=== PATIENT | female | born 1955 | race Caucasian/White ===

== ENCOUNTER 2020-09-06 12:36 | Emergency (ER) | payer MEDICARE, SELFPAY ==
[2020-09-06 12:40] VITALS: BP 136/70; PULSE 86; RESP 16; TEMP 36.6; O2SAT 97
--- NOTE | 2020-09-06 12:56 | ED.EYEPROB ---
HPI - Eye Problem General Chief complaint: Eye Problems Stated complaint: something in right eye Time Seen by Provider: 09/06/20 12:37 Source: patient Mode of arrival: ambulatory Limitations: no limitations History of Present Illness HPI Narrative: 65-year-old near-sighted woman with a history cataract surgery in her right eye comes in today complaining of a spider web-like visual defect in her right eye. she states that started at noon today. She denies any foreign body sensation or she had any eye trauma. She had cataract surgery in the last year two. She has a history of hypertension but denies history of diabetes. She denies prior similar symptoms. She denies blurred vision, flashing lights, double vision, eye pain, headache, nausea, vomiting or photophobia. MD chief complaint: vision change Onset (ago): hour(s) (1) Onset description: sudden Duration: constant Location: right eye Place: home Mechanism: none Severity: mild Treatments Prior to Arrival: none Related Data Home Medications Medication Instructions Recorded Confirmed amlodipine 10 mg PO DAILY 09/06/20 09/06/20 atorvastatin 20 mg PO HS 09/06/20 09/06/20 bupropion HCl 100 mg PO BID 09/06/20 09/06/20 levothyroxine 112 mcg PO DAILY 09/06/20 09/06/20 lisinopril-hydrochlorothiazide 1 tablet PO DAILY 09/06/20 09/06/20 Allergies Allergy/AdvReac Type Severity Reaction Status Date / Time No Known Allergies Allergy Unverified 11/14/18 16:13 Review of Systems Constitutional: Constitutional: Denies chills, Denies fever(s) and Denies weakness Eyes: Eyes: Reports as per HPI, Reports change in vision and Denies photophobia ENT: Denies dysphagia, Denies nasal congestion and Denies sore throat Cardiovascular: Cardiovascular: Denies chest pain and Denies radiating jaw, neck or arm pain Respiratory: Respiratory: Denies cough, Denies dyspnea and Denies wheezing Gastrointestinal: Gastrointestinal: Denies abdominal pain, Denies nausea and Denies vomiting Musculoskeletal: Musculoskeletal: Denies back pain, Denies arthralgias and Denies joint swelling Integumentary/Breasts: Skin/Breast: Denies pruritus, Denies erythema and Denies rash Neurologic: Denies vertigo, Denies dizziness and Denies syncope Hematologic/Lymphatic: Hematologic/Lymphatic: Denies easy bleeding and Denies easy bruising Allergic/Immunologic: Allergic/Immunologic: Denies lip swelling and Denies throat swelling [facility] Past Medical History Medical History (Updated 09/06/20 @ 15:06 by Darin Baker MD) Dyslipidemia Hypertension Hypothyroidism Mood disorder Surgical History Surgical History (Updated 09/06/20 @ 15:06 by Darin Baker MD) History of appendectomy History of tubal ligation Social History Social History (Updated 09/06/20 @ 15:07 by Darin Baker MD) Smoking status: Current every day smoker Alcohol intake: never Substance use: never Living arrangements: with family Occupation/Education: retired Exam Const: General: healthy appearing, no acute distress and alert Orientation/consciousness: patient oriented x3 Limitations: no limitations HENMT: Head: normal to inspection Ears: external ears normal, TM's normal bilaterally and EAC's normal General nose exam: Normal nares present Face and sinus: normal facial exam Mouth: Yes moist mucous membranes Throat: posterior oropharynx normal Eyes: Conjunctivae: conjunctivae normal and normal conjunctivae Pupils: Equal, round and reactive pupils present EOM: EOMs intact bilaterally Direct Ophthalmoscopy: no photophobia Other: Anterior chamber is without lesion, notable hyphema or cloudiness. Cornea shows no foreign body and no uptake. Neck: Neck: normal visual inspection and no lymphadenopathy Resp: Effort & Inspection: normal respiratory effort and not labored Auscultation: clear to auscultation bilaterally, no rales, no rhonchi and no wheezes Cardio: Rate: regular rate Rhythm: reg
[2020-09-06] MEDS: FLUORESCEIN SOD 1 MG/STRIP RIGHT EYE (13:03)
[2020-09-06] MEDS: DACRIOSE EYE IRRIGATION 118 ML BOTTLE 20 ML RIGHT EYE (13:03)
[2020-09-06] MEDS: TETRACAINE HCL 0.5% OPHTH SOLN 4 ML BTL 1 DROP RIGHT EYE (13:03)
--- NOTE | 2020-09-06 13:23 | PC.NURSE ---
[facility] CONTACTED BY [facility] DR. COLEY
--- NOTE | 2020-09-06 14:31 | PC.NURSE ---
Dyllan contacted, erp spoke with on-call opthamologist
[2020-09-06 14:37] VITALS: RESP 14; O2SAT 100
== END 2020-09-06 14:38 | disposition home or self-care (01) ==
PROVIDERS: Emergency Provider Emergency Medicine; PCP Family Medicine
DX: H54.7 Unspecified visual loss (principal)
CPT/HCPCS: 99282; 99283; A9270

== ENCOUNTER 2021-05-20 07:56 | Outpatient (CLI) | payer MEDICARE, SELFPAY ==
--- NOTE | ~2021-05-20 | XR_ITS ---
XR hip RT 2V w AP pelvis DATE: 05/20/2021 08:17 INDICATION: Generalized right hip pain, limited range of motion. No injury. TECHNIQUE: AP pelvis. AP and lateral views of right hip. COMPARISON: None FINDINGS: There is diffuse osteopenia. There is moderate degenerative disc disease of the lumbar spine. Status post left total hip arthroplasty. The pubic symphysis and sacroiliac joints are intact. No pelvic fracture or bone destruction is detec paulette. There is severe right hip joint space narrowing and spurring compatible with severe right hip osteoar thritis. Abdominal aortic, iliac and femoral arterial calcifications. IMPRESSION: Severe primary right hip osteoarthritis Status post left total hip arthroplasty Osteopenia Reviewed, dictated and finalized at location A. H COOK
== END 2021-05-20 07:57 | disposition home or self-care (01) ==
LOC: CHSIMG 08:00
PROVIDERS: PCP Family Medicine; Visit Provider Orthopaedic Surgery
DX: M25.551 Pain in right hip (principal)
CPT/HCPCS: 73502

== ENCOUNTER 2021-06-30 12:42 | Outpatient (CLI) | payer MEDICARE, SELFPAY ==
--- NOTE | ~2021-06-30 | MM_ITS ---
EXAMINATION: MM screening kennedi BI w janelle HISTORY: Screening TECHNIQUE: Craniocaudal and mediolateral oblique 3-D tomosynthesis images were obtained and synthetic 2-D images were generated. CAD analysis was submitted and interpreted. COMPARISON: No prior mammogram is available for comparison at this institution. 06/11/2016 BREAST PARENCHYMAL COMPOSITION: There are scattered areas of fibroglandular density. FINDINGS: There is no evidence of suspicious mass, calcification, or architectural distortion to sugg est malignancy in either breast. There has been no suspicious interval change. IMPRESSION: 1. No mammographic evidence of malignancy. 2. Recommend routine screening mammography in one year. BI-RADS Category 1: Negative Reviewed, dictated and finalized at location A. GER PROCESS
--- NOTE | ~2021-06-30 | CT_ITS ---
EXAMINATION: CT lung screening DATE: 06/30/2021 13:08 INDICATION: Personal history of nicotine dependence, prior smoker with 80 pack year history TECHNIQUE: Computed tomography (CT) of the chest was performed without intravenous contrast. The dose -length product (DLP) was 230.01 mGy-cm. Automated exposure control and iterative reconstruction tech [employer] were employed. COMPARISON: 07/12/2018 FINDINGS: No suspicious pulmonary nodules are identified. The lungs are free of acute opacities. Ther e is no pleural effusion or pneumothorax. No pathologically enlarged thoracic lymph nodes are identif ied. The heart size is normal. There is lipomatous hypertrophy of the interatrial septum. Calcified c oronary artery atherosclerosis is noted. There is mild thoracic spondylosis. IMPRESSION: 1. Lung-RADS category 1: Negative. Continue annual screening with noncontrast low-dose chest CT in 12 months. Reviewed, dictated and finalized at location A. AGE DESIGNER IMPRESSION: 1. Lung-RADS category 1: Negative. Continue annual screening with noncontrast l ow-dose chest CT in 12 months.
== END 2021-06-30 12:43 | disposition home or self-care (01) ==
LOC: CHSIMG 12:43
PROVIDERS: PCP Family Medicine; Visit Provider Family Medicine
DX: Z87.891 Personal history of nicotine dependence (principal); J44.9 Chronic obstructive pulmonary disease, unspecified; Z12.31 Encounter for screening mammogram for malignant neoplasm of breast
CPT/HCPCS: 71271; 77063; 77067

== ENCOUNTER 2021-07-25 07:33 | Outpatient (CLI) | payer MEDICARE, SELFPAY ==
--- NOTE | 2021-07-25 08:39 | ECG_ITS ---
Measurements Intervals [place] Rate: 66 P: 43 W[place]: 153 QRS: 52 QRSD: 98 T: 81 QT: 386 QTc: 407 Interpretive Statements SINUS RHYTHM WITH OCCASIONAL VENTRICULAR PREMATURE COMPLEXES NONSPECIFIC T-WAVE ABNORMALITY, CONSIDER ANTERIOR ISCHEMIA [-0.1+ mV T WAVE IN V3/V4] BORDERLINE ECG COMPARED TO ECG 11/04/2018 10:13:17 NO SIGNIFICANT CHANGES Electronically Signed On 07-25-2021 15:09:52 TICKETING AGENT by Praveen Knight M.D.
[2021-07-25 09:54] LABS: Basophils Absolute Auto 0.1 K/mm3 (0.0-0.1); Basophils Percent Auto 1.2 % (0.2-1.2); Eosinophils Absolute Auto 0.2 K/mm3 (0-0.3); Eosinophils Percent Auto 2.4 % (0-4.4); Immature Granulocyte Absolute 0.02 K/mm3 (0.00-0.031); Immature Granulocyte Percent A 0.3 % (0-0.5); Lymphocytes Absolute Auto 1.81 K/mm3 (0.9-3.2); Lymphocytes Percent Auto 27.4 % (18.3-44.2); Mean Corpuscular HGB Conc 32.5 g/dl (32-36); Mean Corpuscular Hemoglobin 31.2 pg (26-34); Mean Corpuscular Volume 95.9 fl (80-100); Mean Platelet Volume 8.6 fl (7.4-10.4); Monocytes Absolute Auto 0.7 K/mm3 (0.1-0.6); Neutrophils Absolute Auto 3.9 K/mm3 (1.3-6.7); Neutrophils Percent Auto 58.7 % (45.5-73.1); Platelet Count Result 320 k/mm3 (150-375); Red Blood Count 4.17 M/mm3 (4.2-5.4); White Blood Count 6.6 K/mm3 (4.5-10.0)
[2021-07-25 10:02] LABS: Urine Cotinine NEGATIVE
[2021-07-25 10:04] LABS: Prothrombin Time 12.4 Seconds (11.1-14.7)
[2021-07-25 10:05] LABS: Partial Thromboplastin Time 27.2 SECONDS (22.3-36.8)
[2021-07-25 10:07] LABS: Albumin Level 4.5 g/dL (3.5-5.1); Anion Gap 5 mmol/L (8-16); Blood Urea Nitrogen 15 mg/dL (7-17); Calcium 9.2 mg/dL (8.4-10.2); Carbon Dioxide 31 mmol/L (22-30); Chloride 102 mmol/L (98-107); Estimated Glomerular Filt Rate 50; Glucose 90 mg/dL (65-110); Potassium 4.1 mmol/L (3.4-5.0); Sodium 138 mmol/L (137-145)
[2021-07-25 10:12] LABS: Add Urine Microscopic? NO; Appearance Urine Clear (Clear); Bilirubin Urine Negative (Negative); Blood Urine Negative (Negative); Color Urine Straw (Yellow); Glucose Urine UA Negative (Negative); Ketones Urine Negative (Negative); Leukocyte Esterase Ur Negative LEU/UL (Negative); Nitrate Urine Negative (Negative); Protein Urine Negative (Negative); Specific Grav Ur 1.006 (1.001-1.035); Urobilinogen Urine Negative mg/dL (<2.0)
[2021-07-25 12:58] LABS: Hemoglobin A1C 5.5 % (<5.7)
== END 2021-07-25 07:34 | disposition home or self-care (01) ==
LOC: ANHSURGERY 07:41
PROVIDERS: PCP Family Medicine; Visit Provider Orthopaedic Surgery
DX: Z01.818 Encounter for other preprocedural examination (principal); M16.11 Unilateral primary osteoarthritis, right hip
CPT/HCPCS: 80048; 80307; 81003; 82040; 83036; 85025; 85610; 85730; 86850; 86900; 86901; 87081; 93005

== ENCOUNTER 2021-07-31 11:59 | Observation (INO) | payer MEDICARE, SELFPAY ==
[2021-07-25 07:52] VITALS: BMI 32.6
--- NOTE | 2021-07-25 08:19 | PC.NURSE ---
Report to the Outpatient Waiting Room, entrance under the green pavilion located off [facility], at time _0900 on date 07/30/21 . OR Time: _1100 . - You and your visitor will be asked a series of questions to screen for COVID 19 for your protection. - A mask is required within the hospital. Preoperative COVID Testing Requirements: No COVID Test needed if: (proof is required; if not received patient will have Rapid Test prior to entry) - Patient has received COVID Vaccine at least 14 days prior to procedure date or - Patient has positive COVID test result within last 90 days of surgery date. COVID Test needed if above criteria is not met If not COVID vaccinated a COVID test must be conducted within 72 hours of surgery and patient is asked to isolate self from time of testing until procedure. You will go to the [facility] for your COVID testing. The [facility] is located at the corner of [address] [facility]. You will only be called if COVID results are positive and your surgeon may reschedule your elective surgery date. Patients may have clear liquids (water, carbonated beverages, clear teas, apple juice) until 3 hours prior to surgery with a maximum of 20 ounces. - No food from midnight until time of surgery Take the following medications with a SIP of water the morning of surgery: ___INHALER,AMLODIPINE,BUPROPION,AND LEVOTHYROXINE Medications to discontinue per physician ___PROBIOTIC 3 DAYS PRE OP Date to take last dose___07/26/21 Please no make-up, nail lithuanian, hairspray, perfume, deodorant, or body powder the day of surgery. No jewelry (including any body piercings) or valuables the day of surgery, leave them at home. Please take a shower or bath the night before, or the morning of, surgery with an antibacterial soap. Wear comfortable, loose fitting clothing. Children are encouraged to wear pajamas. - Jewelry must be removed prior to entering the operating room. Rings and piercings that are not removed may be cut off. - The hospital will not accept responsibility for valuables. - Please leave all valuables, including medications, at home the day of surgery. If you are going home after surgery, a licensed recycler forklift driver truck driver must drive you home. - NO public transportation without another adult. - We recommend that an adult stay with you for 24 hours following discharge. - We also recommend that you do not drive, make important decision, drink alcoholic beverages, or take any drugs that were not prescribed by your health care provider for at least 24 hours after your discharge time. One visitor will be allowed to accompany the patient into the hospital. Patients visitor will be instructed to remain with patient at all times or leave the building. We will allow the visitor to come back to the postoperative area when patient is ready. Follow any additional instructions given to you from your surgeon. VERBAL AND WRITTEN instructions given to PATIENT and asked if any additional questions and then verbalized understanding. Patient advised to call surgeon office or pre surgery nurse liaison [phone] if any additional questions.
[2021-07-25 08:39] VITALS: BP 143/59; PULSE 69; RESP 20; TEMP 36.4; O2SAT 99
--- NOTE | 2021-07-29 14:47 | WPDANESEPPF ---
Anes - Initial Pre Proc Eval Procedure: Operation Date: 07/30/21 07:30 Proposed Procedures p Right Total Hip Arthroplasty - Erwin Nicholson MD Date/Time: 07/29/21 14:47 Surgeon: Erwin Nicholson MD Pre Op Diagnosis: Rt Hip DJD Patient Data Age: 66 Gender: F Height: 1.65 m Weight: 89.1 kg Last Vital Signs Temp 97.5 F L 07/25/21 08:39 Pulse 69 07/25/21 08:39 Resp 20 07/25/21 08:39 BP 143/59 H 07/25/21 08:39 Pulse Ox 99 07/25/21 08:39 Allergies Allergy/AdvReac Type Severity Reaction Status Date / Time No Known Allergies Allergy Verified 07/30/21 06:13 Home Medications Medication Instructions Recorded Confirmed Type amlodipine 10 mg PO DAILY 09/06/20 07/30/21 History atorvastatin 20 mg PO HS 09/06/20 07/30/21 History lisinopril-hydrochlorothiazide 1 tablet PO DAILY 09/06/20 07/30/21 History L. gasseri-B. bifidum-B longum 1 cap PO DAILY 07/25/21 07/30/21 History [[employer]] albuterol sulfate [Ventolin HFA] 1 puff INHALATION BID 07/25/21 07/30/21 History bupropion HCl 300 mg PO DAILY 07/25/21 07/30/21 History docusate sodium [Stool Softener] 50 mg PO DAILY 07/25/21 07/30/21 History levothyroxine 137 mcg PO DAILY 07/25/21 07/30/21 History Patient hx anesthesia problems: none Family hx anesthesia problems: none Results Review: All pre-operative results and documents have been reviewed as part of the pre-operative evaluation. [facility] Past Medical History Medical History (Updated 06/05/21 @ 15:33 by Chen Ziegler, RT(R)) Arthritis Constipation COPD (chronic obstructive pulmonary disease) Depression Dyslipidemia High cholesterol Hypertension Hypothyroidism Mood disorder Wears glasses Surgical History Surgical History (Updated 06/05/21 @ 15:33 by Chen Ziegler, RT(R)) History of appendectomy History of left hip replacement History of surgery on wrist History of tubal ligation Family History Family History (Updated 06/05/21 @ 15:34 by Chen Ziegler RT(R)) Other Asthma Heart disease High cholesterol Hypertension Social History Social History (Updated 06/05/21 @ 15:34 by RT Mo(R)) Smoking packs per day: 1.5 Smoking cigarettes per day: 30.0 Years smoked: 40 Smoking pack-years: 60.00 Tobacco type: cigarettes Smoking end date: 05/17/12 Additional smoking assessment comments: DENIES ANY FORM OF TOBACCO USE Alcohol intake: never Substance use: never Living arrangements: with family Gender identity (if verbalized by the patient): Female Spiritual care concerns: No Anes - Eval Final PreProcedure Day of Procedure 07/29/21 14:47 Patient weight: obese Heart: regular rate and rhythm Lungs: clear to auscultation Airway: Mallampati scale class II Neurological: alert and oriented Last oral intake: >/= 8 hours ASA classification: III Emergent: no Anesthetic plan: proceed Anesthesia type and monitoring: general ETT and standard monitoring Results Review: All pre-operative results and documents have been reviewed as part of the pre-operative evaluation. Informed Consent: The patient's anesthetic plan and its attendant risks and benefits were discussed with the patient/family/POA. Questions were solicited and answers provided to the satisfaction of the patient/family/POA.
[2021-07-30] VITALS (35 sets, daily range): BP systolic 76–125; BP diastolic 45–78; PULSE 56–96; RESP 7–18; TEMP 36.2–36.8; O2SAT 66–100
[2021-07-30] MEDS: ACETAMINOPHEN 500 MG TABLET 1000 MG PO (06:21)
[2021-07-30] MEDS: LACTATED RINGERS 1,000 ML 30 ML IV CONT ×2 (06:44→11:16)
[2021-07-30] MEDS: TRANEXAMIC ACID 1,000MG/ISO100 1,000 MG/100 ML BAG 200 MG IVPB (06:45)
--- NOTE | 2021-07-30 07:29 | WPDHPUPDATE1 ---
History and Physical Update Update Date/Time: 07/30/21 07:29 History and Physical has been reviewed, including an updated exam of the patient. There are NO changes in the patient's condition. Risks, benefits, and alternatives have been discussed and questions answered. Patient agrees to proceed with procedure.
[2021-07-30] MEDS: ceFAZolin 2 GM/D5W 50 ML 2 GM/50 ML BAG IVPB ×3 (07:33→23:08)
[2021-07-30] MEDS: TRANEXAMIC ACID 1,000 MG/10 ML AMPUL 1000 MG IV PUSH (10:09)
--- NOTE | 2021-07-30 11:35 | SUR.PHASEI ---
1120 PORTABLE XRAY OF RIGHT HIP DONE.
--- NOTE | 2021-07-30 12:14 | P.OP_ITS ---
Procedure Note - Detailed Date of Procedure 07/30/21 Pre-op Diagnosis Rt Hip DJD Post-op Diagnosis Same Procedure Performed R RACHAEL Surgeon Erwin Nicholson MD Anesthesia General Description of Procedure THE PATIENT WAS TAKEN TO THE OPERATING ROOM IN STABLE CONDITION AND WAS PLACED IN THE LATERAL DECUBITUS AND THE RIGHT LOWER EXTREMITY WAS PREPPED AND DRAPED IN THE STERILE FASHION. INCISION WAS MADE IN THE POSTERIOR LATERAL SIDE OF THE HIP, DOWN TO THE FASCIA LAYER. THE FASCIA WAS INCISED. THE HIP WAS EXPOSED. THE SHORT EXTERNAL ROTATORS WERE EXPOSED. THE SCIATIC NERVE WAS IDENTIFIED. INCISION WAS MADE THROUGH THE SHORT EXTERNAL ROTATORS AND THE CAPSULE OF THE HIP JOINT. THE HIP WAS DISLOCATED. AN OSTEOTOMY WAS MADE TO THE FEMORAL NECK ABOUT 1 CM PROXIMAL TO THE LESSER TROCHANTER. THE ACETABULUM WAS EXPOSED. THERE WAS SEVERE DJD SEEN. BEGINNING WITH A 44 REAMER THE ACETABULUM WAS REAMED TO 55 MM. A 55 MM TRIAL WAS PLACED IN 35 DEG OF ABDUCTION AND ANTEVERSION WAS IN ALIGNMENT WITH THE TRANS ACETABULAR LIGAMENT. THE FIT WAS EXCELLENT. THE TRIAL WAS REMOVED. A 56 MM BIOMET G7 COMPONENT WAS THEN TAPPED IN TO PLACE IN 35 DEG OF ABDUCTION AND ANTEVERSION IN ALIGNMENT WITH THE TRANSVERSE ACETABULAR LIGAMENT. THE FIT WAS EXCELLENT. THE ACETABULAR LINER WAS PLACED AND CHECKED FOR STABILITY. NEXT THE FEMUR WAS PREPARED WITH INITIAL CANAL FINDER THEN SEQUENTIAL BROACHING WITH A TAPERLOC HIP SYSTEM, UNTIL A 10 BROACH FIT WELL IN 15 OF ANTEVERSION. A +0 HIGH OFFSET NECK WITH 36 MM HEAD TRIAL WAS PLACED. THE SHUCK TEST WAS EXCELLENT AND THE STABILITY IN FLEXION AND ROTATION WAS EXCELLENT. LEG LENGTHS WERE GROSSLY EQUAL. TRIALS WERE REMOVED. A BIOMET TAPERLOC 10 STEM WAS PLACED WITH A HIGH OFFSET NECK THE FIT WAS EXCELLENT IN 15 DEG OF ANTEVERSION. A +0 CERAMIC 36 MM FEMORAL HEAD WAS PLACED. THE HIP WAS TRIALED AND THE STABILITY WAS EXCELLENT WERE THE LEG LENGTHS AND THE SHUCK TEST. THE WOUND WAS IRRIGATED WITH STERILE BETADINE AND WATER FOR 3 MIN. THEN WASHED AGAIN. THE CAPSULE AND THE EXTERNAL ROTATORS WERE APPROXIMATED WITH NUMBER 1 VICRYL. THE FASCIA WITH No 2 QUIL AND THE SUB CUTANEOUS LAYER WITH 2-0 ABSORBABLE SUTURE WITH A RUNNING 3-0 SUBCUTICULAR LAYER WELL. DERMABOND WAS PLACED AND STERILE DRESSING WAS APPLIED. PATIENT WAS PLACED BACK ON TO THE SUP INE POSITION AND WAS EXTUBATED Estimated Blood Loss -600.0 Complications No immediate complications Condition Stable Disposition PACU
[2021-07-30] MEDS: ONDANSETRON INJ 4 MG/2 ML VIAL IV PUSH (12:21)
--- NOTE | 2021-07-30 12:39 | SUR.PHASEI ---
DR. ERVIN NOTIFIED RE:PATIENT'S SYSTOLIC BP'S IN LOW 80'S. NO ORDERS FOR NOW.
--- NOTE | 2021-07-30 12:46 | SUR.PHASEI ---
SATS TO 66% ON RA WHEN SHE FALLS ASLEEP; RISE TO 90%'S WHEN SHE AWAKENS; 2 LITERS OXYGEN PER NC PLACED.
--- NOTE | 2021-07-30 13:06 | SUR.PHASEI ---
REPORT GIVEN TO 2N FLOOR RN; RN ASKED TO CHECK WITH CRUSHER AND BLENDER OPERATOR RE: BP'S IN LOW 80'S. ISRAEL NOTIFIED. INSTRUCTED TO CALL DR. GILLESPIE; AWAITING CALL BACK.
[2021-07-30] MEDS: LACTATED RINGERS 500 ML 999 ML IV CONT (13:19)
--- NOTE | 2021-07-30 13:20 | SUR.PHASEI ---
DR. ERVIN ORDERED 500 ML LR BOLUS TO BE GIVEN. CALLED DR. GILLESPIE AGAIN.
--- NOTE | 2021-07-30 13:26 | SUR.PHASEI ---
DR. GILLESPIE CALLED BACK; INSTRUCTED TO CONTINUE LR BOLUS AND DRAW AN H/H. HE WILL COME BY TO SEE PT. GUEST RELATIONS EXECUTIVE HERE TO SEE PATIENT.
--- NOTE | 2021-07-30 13:39 | SUR.PHASEI ---
H/H DRAWN PER VENIPUNCTURE IN RIGHT AC. SENT TO LAB. BOLUS FINISHED.
[2021-07-30 13:42] LABS: Hematocrit 27.2 % (37.0-47.0); Hemoglobin 8.8 g/dL (12.0-15.0)
[2021-07-30] MEDS: SODIUM CHLORIDE 0.9% IV 1,000 ML 125 ML IV CONT ×2 (15:21→23:35)
[2021-07-30 15:33] LABS: Hematocrit 28.4 % (37.0-47.0)
--- NOTE | 2021-07-30 15:42 | ADMGEN ---
This patient, Ela Vázquez, was admitted to Intensive Care Unit-8. Patient/family oriented to hospital policies and general routines including ID bracelet, bed and alarms, visiting hours, pain management, procedures, bathroom and other care routines, personal items, smoking policy, room service/diet, and visiting hours. Information on how to activate the Rapid Response Team has been discussed. Patient/Family are encouraged to report perceived risks to care and to ask questions if they do not understand what they are told or what they should do.
[2021-07-30] MEDS: SENNA/DOCUSATE SODIUM TABLET 2 TAB PO (16:30)
[2021-07-30] MEDS: SODIUM CHLORIDE 0.9% IV 250 ML 30 ML IV CONT (17:40)
[2021-07-30] MEDS: oxyCODONE HCL (*CRX) 5 MG TAB IR PO ×2 (19:32→23:34)
[2021-07-30] MEDS: ATORVASTATIN 20 MG TABLET PO (19:32)
--- NOTE | 2021-07-30 19:47 | PC.NURSE ---
Patient unable to void on bedpan, states will try again later. Pillows placed under legs in proper position, Ice pack applied. Patient not to sit past 90 degrees.
[2021-07-30] MEDS: ALBUTEROL SULFATE (*SP) AEROSOL 1 PUFF INHALATION (20:50)
--- NOTE | 2021-07-30 23:41 | PC.NURSE ---
Patient up to BSC with x1 assist. Unable to void on BSC as well as bedpan. Christensen catheter inserted as there is a standing order for one.
[2021-07-31] VITALS (18 sets, daily range): BP systolic 94–123; BP diastolic 46–60; PULSE 75–102; RESP 12–24; TEMP 36.4–37.2; O2SAT 92–100
--- NOTE | ~2021-07-31 | XR_ITS ---
EXAMINATION: XR hip RT 1V DATE: 07/30/2021 11:29 INDICATION: Postoperative evaluation following right total hip arthroplasty TECHNIQUE: Anteroposterior and lateral views of the right hip were obtained. COMPARISON: Radiograph dated 07/25/2021 FINDINGS: Interval placement of a right total hip arthroplasty which appears well seated in near anatomic align ment. The acetabular component is affixed with at least 2 screws. Expected subcutaneous gas in the po stoperative bed. No fractures identified. IMPRESSION: 1. Right total hip arthroplasty, negative for postoperative purposes. Reviewed, dictated and finalized at location A.
--- NOTE | ~2021-07-31 | XR_ITS ---
EXAMINATION: XR chest 1V portable DATE: 08/01/2021 10:06 INDICATION: Elevated white blood cell counts TECHNIQUE: frontal view of the chest was obtained. COMPARISON: Chest radiograph dated 11/04/[address] dated 06/30/2021 FINDINGS: The lungs remain clear with no focal airspace opacities, pulmonary edema, pleural effusion or pneumot horax. The cardiomediastinal silhouette is normal. IMPRESSION: 1. No acute cardiopulmonary disease. Reviewed, dictated and finalized at location A.
[2021-07-31] MEDS: LEVOTHYROXINE SODIUM 112 MCG TABLET PO (05:14)
[2021-07-31] MEDS: LEVOTHYROXINE SODIUM 25 MCG TABLET PO (05:14)
[2021-07-31 05:19] LABS: Basophils Percent Auto 0.2 % (0.2-1.2); Eosinophils Percent Auto 0.1 % (0-4.4); Hematocrit 27.5 % (37.0-47.0); Hemoglobin 9.1 g/dL (12.0-15.0); Immature Granulocyte Absolute 0.12 K/mm3 (0.00-0.031); Immature Granulocyte Percent A 0.7 % (0-0.5); Lymphocytes Absolute Auto 1.65 K/mm3 (0.9-3.2); Lymphocytes Percent Auto 9.3 % (18.3-44.2); Mean Corpuscular HGB Conc 33.1 g/dl (32-36); Mean Corpuscular Hemoglobin 31.4 pg (26-34); Mean Corpuscular Volume 94.8 fl (80-100); Mean Platelet Volume 8.9 fl (7.4-10.4); Monocytes Absolute Auto 1.3 K/mm3 (0.1-0.6); Monocytes Percent Auto 7.5 % (2.6-8.5); Neutrophils Absolute Auto 14.6 K/mm3 (1.3-6.7); Neutrophils Percent Auto 82.2 % (45.5-73.1); Platelet Count Result 223 k/mm3 (150-375); Red Cell Distribution Width 14.2 % (11.5-14.5); White Blood Count 17.8 K/mm3 (4.5-10.0)
[2021-07-31 05:23] LABS: Anion Gap 4 mmol/L (8-16); Blood Urea Nitrogen 19 mg/dL (7-17); Calcium 7.2 mg/dL (8.4-10.2); Carbon Dioxide 26 mmol/L (22-30); Chloride 105 mmol/L (98-107); Estimated CRCL calculation 53 ml/min; Estimated Glomerular Filt Rate 55; Glucose 127 mg/dL (65-110); Potassium 4.2 mmol/L (3.4-5.0); Sodium 135 mmol/L (137-145)
[2021-07-31] MEDS: ceFAZolin 2 GM/D5W 50 ML 2 GM/50 ML BAG IVPB (06:04)
[2021-07-31] MEDS: ALBUTEROL SULFATE (*SP) AEROSOL 1 PUFF INHALATION ×2 (08:35→21:20)
[2021-07-31] MEDS: CELECOXIB 200 MG CAPSULE PO (09:00)
[2021-07-31] MEDS: ASPIRIN 325 MG ENTERIC TABLET 650 MG PO (09:00)
[2021-07-31] MEDS: SENNA/DOCUSATE SODIUM TABLET 2 TAB PO ×2 (09:00→16:40)
[2021-07-31] MEDS: polyethylene glycoL 3350 17 GM POWD.PACK PO (09:00)
[2021-07-31] MEDS: buPROPion HCL XL (24 HR) 150 MG TABCR 300 MG PO (09:00)
--- NOTE | 2021-07-31 10:26 | PM.PNORT ---
Progress Note: A&P Assessment and Plan (1) S/P total hip arthroplasty: Qualifiers: Laterality: right Qualified Code(s): Z96.641 - Presence of right artificial hip joint Code(s): Z96.649 - Presence of unspecified artificial hip joint Status: Acute Assessment and Plan: POD #1: Right RACHAEL Continue PT/OT. WBAT. Walker. HIGH FALL RISK. Monitor vitals/output. Pain control. Ice. Monitor dressing. Change prior to discharge. SCDs. Incentive Spirometry. DVT prophylaxis. Dispo: Home with Home Health pending progress with PT/OT, medical stability, improvement in BP. (2) Hypotension after procedure: Code(s): I95.81 - Postprocedural hypotension Status: Acute Assessment and Plan: Patient with difficulties with hypotension status post right total hip arthroplasty. Patient is currently in the ICU however with IMU status. Patient stable to be discharged to the hospital floor with telemetry. Current BP meds being held. Appreciate hospitalist recommendations for discharge planning. (3) Urinary retention: Code(s): R33.9 - Retention of urine, unspecified Status: Acute Assessment and Plan: Acute postoperative urinary retention. Christensen catheter placed overnight. We will attempt a void trial again today. Appreciate hospitalist recommendations. Additional Plan Reviewed postoperative labs, vitals, physical exam and reported symptoms with attending physician Dr. Nicholson. Dr. Nicholson appreciate hospitalist recommendations at this time. Dr. Nicholson agreeable to have patient moved to the medical floor at this time as well. No further recommendations. Subjective Subjective Date/Time Seen: 07/31/21 10:26 Post Op day: 1 Interval history: POD #1: Right RACHAEL Patient admitted to the ICU post surgery due to no available IMU bed. Patient with difficulty with hypotension postoperatively. Her pain is well controlled today. She states that she did have difficulty with hypotension with the previous surgery. She has had difficulty with urination overnight. Christensen catheter placed. Strict I&O's currently. Patient's pain is well tolerated however she is concerned about working with PT and OT and fearful of messing up her hip. Reviewed importance of RACHAEL precautions. Review of Systems Review of Systems: All systems reviewed & are unremarkable except as noted in HPI and below (HPI ) Constitutional: Constitutional: Denies chills, Denies fever(s), Denies headache(s) and Denies lethargy ENT: Denies headache(s) Cardiovascular: Cardiovascular: Denies chest pain, Denies diaphoresis, Denies lightheadedness, Denies palpitations, Denies dyspnea and Denies dyspnea on exertion Respiratory: Respiratory: Denies cough, Denies dyspnea and Denies dyspnea on exertion Gastrointestinal: Gastrointestinal: Denies constipation, Denies diarrhea, Denies nausea and Denies vomiting Genitourinary: Genitourinary: Reports urinary frequency, Denies dysuria and Denies urinary hesitancy Musculoskeletal: Musculoskeletal: Reports joint swelling (Right Hip ) and Reports limited range of motion (Right Hip due to recent surgery ) Neurologic: Denies headache(s) and Reports weakness Endocrine: Endocrine: Denies palpitations Exam Const: General: comfortable and no acute distress Resp: Effort & Inspection: normal respiratory effort Cardio: Rate: regular rate Rhythm: regular rhythm GI: Inspection: non-distended Skin: General skin exam: normal color Other: Incision right hip c/d/i. Surrounding tissue without redness/warmth. Mild swelling consistent with recent surgery. No drainage. Neuro: Cognition (Neuro): normal cognition Speech: normal speech Other: Strength RLE decreased due to recent surgery. +ankle dorsiflexion/plantarflexion. NV intact. Moves toes. Sensaiton intact to light touch. Extrem: Right lower extremity: normal to inspection, normal capillary refill and hip/thigh Details: tenderness L
--- NOTE | 2021-07-31 10:31 | P.PNAN_ITS ---
Anes - Prog Note Post-Op Date/Time: 07/31/21 10:31 Cardiovascular status: other (management per ICU team) Respiratory status: normal Airway patency: baseline Mental status: baseline Post-Op hydration status: other (management per ICU team) Vital Signs: Last Vital Signs Temp 37.1 C 07/31/21 08:00 Pulse 75 07/31/21 10:00 Resp 23 H 07/31/21 08:39 BP 97/46 L 07/31/21 08:00 Pulse Ox 100 07/31/21 08:00 Pain Score (VAS): 3 I/O: Intake & Output 07/30/21 07/31/21 07/31/21 23:59 07:59 15:59 Intake Total 5808 278 2893 Output Total 850 375 Balance 1970 -450 815 Laboratory Tests 07/31/21 04:30 07/31/21 04:30 07/30/21 07/30/21 07/30/21 13:38 15:21 15:21 WBC RBC Hgb 8.8 L D 9.0 L Hct 27.2 L 28.4 L MCV MCH MCHC RDW Plt Count MPV Immature Gran % (Auto) Neut % (Auto) Lymph % (Auto) [place] % (Auto) Eos % (Auto) Baso % (Auto) Lymph # (Auto) [place] # (Auto) Eos # (Auto) Baso # (Auto) Abs Immat Gran (auto) Absolute Neuts (auto) Absolute Nucleated RBC Nucleated RBC % Sodium Potassium Chloride Carbon Dioxide Anion Gap BUN Creatinine Estim Creat Clear Calc Estimated GFR Glucose Calcium Blood Type A Positive Antibody Screen Negative Crossmatch See Detail 07/31/21 07/31/21 04:30 04:30 WBC 17.8 H RBC 2.90 L Hgb 9.1 L Hct 27.5 L MCV 94.8 MCH 31.4 MCHC 33.1 RDW 14.2 Plt Count 223 MPV 8.9 Immature Gran % (Auto) 0.7 H Neut % (Auto) 82.2 H Lymph % (Auto) 9.3 L [place] % (Auto) 7.5 Eos % (Auto) 0.1 Baso % (Auto) 0.2 Lymph # (Auto) 1.65 [place] # (Auto) 1.3 H Eos # (Auto) 0.0 Baso # (Auto) 0.0 Abs Immat Gran (auto) 0.12 H Absolute Neuts (auto) 14.6 H Absolute Nucleated RBC 0.0 Nucleated RBC % 0.0 Sodium 135 L Potassium 4.2 Chloride 105 Carbon Dioxide 26 Anion Gap 4 L BUN 19 H Creatinine 1.00 Estim Creat Clear Calc 53 Estimated GFR 55 L Glucose 127 H Calcium 7.2 L Blood Type Antibody Screen Crossmatch Post-procedural complaints: none Patient Feedback: Patient satisfied with anesthetic care.
[2021-07-31] MEDS: oxyCODONE HCL (*CRX) 5 MG TAB IR PO ×2 (13:43→21:59)
--- NOTE | 2021-07-31 13:50 | PC.NURSE ---
This patient, Ela Vázquez, was transferred to [facility] on 07/31/21 at 1350. Personal belongings sent with patient. Report given to ARETHA Escalante. Appropriate documentation sent with patient.
--- NOTE | 2021-07-31 14:00 | PC.NURSE ---
Belongings and patient transferred from ICU-08 to .
--- NOTE | 2021-07-31 14:25 | PC.NURSE ---
Received from ICU-08 via wheelchair.
[2021-07-31] MEDS: ATORVASTATIN 20 MG TABLET PO (21:59)
[2021-08-01] VITALS (12 sets, daily range): BP systolic 108–132; BP diastolic 46–66; PULSE 76–99; RESP 16–20; TEMP 36.1–37.1; O2SAT 93–98
[2021-08-01] MEDS: LEVOTHYROXINE SODIUM 112 MCG TABLET PO (05:56)
[2021-08-01] MEDS: LEVOTHYROXINE SODIUM 25 MCG TABLET PO (05:56)
[2021-08-01] MEDS: SENNA/DOCUSATE SODIUM TABLET 2 TAB PO ×2 (08:00→18:22)
[2021-08-01] MEDS: buPROPion HCL XL (24 HR) 150 MG TABCR 300 MG PO (08:00)
--- NOTE | 2021-08-01 08:00 | PM.IMCN ---
Assessment and Plan Assessment and plan (1) Leukocytosis: Code(s): D72.829 - Elevated white blood cell count, unspecified Status: Acute Assessment and Plan: WBC elevated at 17.8 Trend WBC Urine culture ordered Chest xray ordered No indication for blood cultures, afebrile, no noted hypotension at this time Start ceftriaxone for prophylaxis (2) S/P total hip arthroplasty: Qualifiers: Laterality: right Qualified Code(s): Z96.641 - Presence of right artificial hip joint Code(s): Z96.649 - Presence of unspecified artificial hip joint Status: Acute Assessment and Plan: POD 2 Surgical procedure performed on 07/30/21 Ortho to manage post op care Cefazolin post op Pain management ordered Zofran for antiemetic DVT prophylaxis deferred to ortho (3) Hypothyroidism: Code(s): E03.9 - Hypothyroidism, unspecified Status: Acute Assessment and Plan: TSH ordered and pending Continue home levothyroxine 137mcg PO Daily Adjust with lab results (4) Hypertension: Code(s): I10 - Essential (primary) hypertension Status: Acute Assessment and Plan: Seems to be more hypotensive at this time Current 116/61 Hold antihypertensives for now restart home medications as indicated Adjust therapy as indicated (5) Dyslipidemia: Code(s): E78.5 - Hyperlipidemia, unspecified Status: Acute Assessment and Plan: Continue home atorvastatin 20mg PO HS (6) Urinary retention: Code(s): R33.9 - Retention of urine, unspecified Status: Acute Assessment and Plan: While through voiding trial had to be straight cathed Has been able to urinate and catheter is no longer in place Does complain of not able to maintain a steady stream Start tamsulosin Start ceftriaxone since this seems to be a UTI by symptoms Consider setting up urology appointment post discharge if urinary catheter is unable to be removed (7) Anemia: Code(s): D64.9 - Anemia, unspecified Status: Acute Assessment and Plan: H/H 9.1/27.5 Anemia labs Iron 19, TIBC 287, % sat 7, transferrin 204, Ferritin pending, B12 246, Folate 6.6 Ferrous sulfate started Stated she received one unit of PRBC Continue to trend labs Secondary to surgery and also iron deficiency (8) Hypotension after procedure: Code(s): I95.81 - Postprocedural hypotension Status: Acute Assessment and Plan: Seems to be resolved at this point Continue to hold antihypertensives Trend BP Current BP is 116/61 HPI Data of Consult Consult date: 08/01/21 Requesting Physician: Erwin Nicholson MD Primary Care Provider: Migel Stevens MD Consult Narrative Narrative: Date/Time 08/01/21 0800 Ela Vázquez is a 66 year old female HTN, Hypotension, hypothyroidism, HLD who presented for an elective hip replacement with Dr. Nicholson on 07/30/21. Patient seems to be doing well however she did state that she has been having problems urinating. Patient stated they took the catheter out she did not urinate and then about 2 or 3:00 p.m. yesterday patient stated a straight catheter. At 5:00 a.m. yesterday evening she was able to go however she has no steady stream on states that her urine had went and then stopped and then she went some more. She also stated that she has been having some heartburn which is not normal for her as well. Her pain is a 2 to 3/10. And that ice has been helping with that. She also stated that she has been having issues with her blood pressure being low. This is probably secondary to anesthesia and the patient has had issues with blood pressure in the past. She denies any chest pain, shortness of breath, nausea, vomiting, diarrhea, cough, lightheadedness or dizziness, weakness or fatigue. Patient did state that she was constipated however she
--- NOTE | 2021-08-01 08:00 | P.CONIM_ITS ---
Assessment and Plan Assessment and plan (1) Leukocytosis: Code(s): D72.829 - Elevated white blood cell count, unspecified Status: Acute Assessment and Plan: * WBC elevated at 17.8 * Trend WBC * Urine culture ordered * Chest xray ordered * No indication for blood cultures, afebrile, no noted hypotension at this time * Start ceftriaxone for prophylaxis (2) S/P total hip arthroplasty: Qualifiers: Laterality: right Qualified Code(s): Z96.641 - Presence of right artificial hip joint Code(s): Z96.649 - Presence of unspecified artificial hip joint Status: Acute Assessment and Plan: * POD 2 * Surgical procedure performed on 07/30/21 * Ortho to manage post op care * Cefazolin post op * Pain management ordered * Zofran for antiemetic * DVT prophylaxis deferred to ortho (3) Hypothyroidism: Code(s): E03.9 - Hypothyroidism, unspecified Status: Acute Assessment and Plan: * TSH ordered and pending * Continue home levothyroxine 137mcg PO Daily * Adjust with lab results (4) Hypertension: Code(s): I10 - Essential (primary) hypertension Status: Acute Assessment and Plan: * Seems to be more hypotensive at this time * Current 116/61 * Hold antihypertensives for now * restart home medications as indicated * Adjust therapy as indicated (5) Dyslipidemia: Code(s): E78.5 - Hyperlipidemia, unspecified Status: Acute Assessment and Plan: * Continue home atorvastatin 20mg PO HS (6) Urinary retention: Code(s): R33.9 - Retention of urine, unspecified Status: Acute Assessment and Plan: * While through voiding trial had to be straight cathed * Has been able to urinate and catheter is no longer in place * Does complain of not able to maintain a steady stream * Start tamsulosin * Start ceftriaxone since this seems to be a UTI by symptoms * Consider setting up urology appointment post discharge if urinary catheter is unable to be removed (7) Anemia: Code(s): D64.9 - Anemia, unspecified Status: Acute Assessment and Plan: * H/H 9.1/27.5 * Anemia labs Iron 19, TIBC 287, % sat 7, transferrin 204, Ferritin pending, B12 246, Folate 6.6 * Ferrous sulfate started * Stated she received one unit of PRBC * Continue to trend labs * Secondary to surgery and also iron deficiency (8) Hypotension after procedure: Code(s): I95.81 - Postprocedural hypotension Status: Acute Assessment and Plan: * Seems to be resolved at this point * Continue to hold antihypertensives * Trend BP * Current BP is 116/61 HPI Data of Consult Consult date: 08/01/21 Requesting Physician: Erwin Nicholson MD Primary Care Provider: Migel Stevens MD Consult Narrative Narrative: Date/Time 08/01/21 0800 Ela Vázquez is a 66 year old female HTN, Hypotension, hypothyroidism, HLD who presented for an elective hip replacement with Dr. Nicholson on 07/30/21. Patient seems to be doing well however she did state that she has been having problems urinating. Patient stated they took the catheter out she did not urinate and then about 2 or 3:00 p.m. yesterday patient stated a straight catheter. At 5:00 a.m. yesterday evening she was able to go however she has no steady stream on states that her urine love
[2021-08-01] MEDS: CELECOXIB 200 MG CAPSULE PO (08:01)
[2021-08-01] MEDS: polyethylene glycoL 3350 17 GM POWD.PACK PO (08:01)
[2021-08-01] MEDS: ASPIRIN 325 MG ENTERIC TABLET 650 MG PO (08:01)
[2021-08-01 08:15] LABS: Lactate Dehydrogenase 407 U/L (313-618)
[2021-08-01 08:22] LABS: Transferrin 204 mg/dL (206-381)
[2021-08-01] MEDS: ALBUTEROL SULFATE (*SP) AEROSOL 1 PUFF INHALATION ×2 (08:24→19:56)
[2021-08-01 08:33] LABS: Iron 19 ug/dL (37-170)
[2021-08-01 08:42] LABS: Percent Iron Saturation 7 % (20-50)
--- NOTE | 2021-08-01 09:02 | PM.PNORT ---
Progress Note: A&P Assessment and Plan (1) S/P total hip arthroplasty: Qualifiers: Laterality: right Qualified Code(s): Z96.641 - Presence of right artificial hip joint Code(s): Z96.649 - Presence of unspecified artificial hip joint Status: Acute Assessment and Plan: POD #2: Right RACHAEL Continue PT/OT. WBAT. Walker. HIGH FALL RISK. Monitor vitals/output. Pain control. Ice. Monitor dressing. Change prior to discharge. SCDs. Incentive Spirometry. DVT prophylaxis. Dispo: Home with Home Health pending progress with PT/OT, medical stability, improvement in BP. (2) Hypotension after procedure: Code(s): I95.81 - Postprocedural hypotension Status: Acute Assessment and Plan: Appreciate medicine team input. Will monitor vitals and determine need for continuation of home BP medication at discharge. (3) Urinary retention: Code(s): R33.9 - Retention of urine, unspecified Status: Acute Assessment and Plan: Christensen catheter removed. Patient is urinating but difficulty with burning. Elevated WBC. Plan for UA. Appreciate medicine team recommendations. Subjective Subjective Date/Time Seen: 08/01/21 09:02 Post Op day: 2 Interval history: POD #2: Right RACHAEL Pain well controlled. Working well with PT/OT. Difficulty with urinary retention, burning with urination. Review of Systems Review of Systems: All systems reviewed & are unremarkable except as noted in HPI and below (HPI ) Constitutional: Constitutional: Denies chills, Denies fever(s), Denies headache(s) and Denies lethargy ENT: Denies headache(s) Cardiovascular: Cardiovascular: Denies chest pain, Denies diaphoresis, Denies lightheadedness, Denies palpitations, Denies dyspnea and Denies dyspnea on exertion Respiratory: Respiratory: Denies cough, Denies dyspnea and Denies dyspnea on exertion Gastrointestinal: Gastrointestinal: Denies constipation, Denies diarrhea, Denies nausea and Denies vomiting Genitourinary: Genitourinary: Reports urinary frequency, Denies dysuria and Denies urinary hesitancy Musculoskeletal: Musculoskeletal: Reports joint swelling (Right Hip ) and Reports limited range of motion (Right Hip due to recent surgery ) Neurologic: Denies headache(s) and Reports weakness Endocrine: Endocrine: Denies palpitations Exam Const: General: comfortable and no acute distress Resp: Effort & Inspection: normal respiratory effort Cardio: Rate: regular rate Rhythm: regular rhythm GI: Inspection: non-distended Skin: General skin exam: normal color Other: Incision right hip c/d/i. Surrounding tissue without redness/warmth. Mild swelling consistent with recent surgery. No drainage. Neuro: Cognition (Neuro): normal cognition Speech: normal speech Other: Strength RLE decreased due to recent surgery. +ankle dorsiflexion/plantarflexion. NV intact. Moves toes. Sensation intact to light touch. Extrem: Right lower extremity: normal to inspection, normal capillary refill and hip/thigh Details: tenderness Location: of the hip (Thigh soft ) Location: laterally and anteriorly, swelling Location: at the hip, abnormal ROM (limited consistent with recent surgery ) and other (Incision c/d/i. ); no deformity and no unusual warmth Objective Data Vital Signs Vital Signs: Vital Signs - 24 hr 07/31/21 10:00 07/31/21 12:00 07/31/21 14:25 Temperature 37.2 C Pulse Rate 75 79 Respiratory Rate 12 16 Blood Pressure 117/46 L Pulse Oximetry 95 98 07/31/21 16:00 07/31/21 16:03 07/31/21 20:00 Temperature 36.4 C 36.6 C Pulse Rate 90 80 83 Respiratory Rate 16 16 Blood Pressure 115/52 L 123/51 L Pulse Oximetry 95 95 07/31/21 21:20 08/01/21 00:00 08/01/21 04:00 Temperature 36.5 C 36.9 C Pulse Rate 76 85 Respiratory Rate 16 16 Blood Pressure 108/66 116/61 Pulse Oximetry 92 94 96 08/01/21 08:25 Temperature Pulse Rate Respiratory Rate Blood Pressure Pulse Oximetry 93
[2021-08-01 09:05] LABS: Thyroid Stimulating Hormone Reflex 0.489 uIU/mL (0.465-4.68)
[2021-08-01 09:24] LABS: Folic Acid 6.6 ng/mL (2.76->20)
[2021-08-01] MEDS: TAMSULOSIN HCL 0.4 MG CAPSULE PO (10:49)
[2021-08-01 13:43] LABS: Add Urine Microscopic? YES; Appearance Urine Clear (Clear); Bilirubin Urine Negative (Negative); Blood Urine 1+ (Negative); Color Urine Yellow (Yellow); Glucose Urine UA Negative (Negative); Ketones Urine Negative (Negative); Leukocyte Esterase Ur Negative LEU/UL (Negative); Nitrate Urine Negative (Negative); Protein Urine Negative (Negative); RBC Urine 0-2 /hpf (0-2); Specific Grav Ur 1.008 (1.001-1.035); Squamous Epithelial Cell Urine Rare /hpf (Few); Urobilinogen Urine Negative mg/dL (<2.0); WBC Urine 0-3 /hpf
[2021-08-01] MEDS: FERROUS SULFATE 324 MG TABLET PO (18:22)
[2021-08-01] MEDS: ATORVASTATIN 20 MG TABLET PO (20:29)
[2021-08-02] VITALS (14 sets, daily range): BP systolic 104–132; BP diastolic 45–70; PULSE 80–105; RESP 14–20; TEMP 36.1–37.1; O2SAT 92–98
[2021-08-02 05:34] LABS: Basophils Absolute Auto 0.1 K/mm3 (0.0-0.1); Basophils Percent Auto 0.6 % (0.2-1.2); Eosinophils Absolute Auto 0.3 K/mm3 (0-0.3); Hematocrit 24.2 % (37.0-47.0); Hemoglobin 7.9 g/dL (12.0-15.0); Immature Granulocyte Absolute 0.09 K/mm3 (0.00-0.031); Immature Granulocyte Percent A 0.7 % (0-0.5); Lymphocytes Absolute Auto 1.41 K/mm3 (0.9-3.2); Lymphocytes Percent Auto 11.1 % (18.3-44.2); Mean Corpuscular HGB Conc 32.6 g/dl (32-36); Mean Corpuscular Hemoglobin 30.9 pg (26-34); Mean Corpuscular Volume 94.5 fl (80-100); Mean Platelet Volume 8.6 fl (7.4-10.4); Monocytes Absolute Auto 1.2 K/mm3 (0.1-0.6); Monocytes Percent Auto 9.2 % (2.6-8.5); Neutrophils Absolute Auto 9.7 K/mm3 (1.3-6.7); Neutrophils Percent Auto 76.4 % (45.5-73.1); Platelet Count Result 199 k/mm3 (150-375); Red Blood Count 2.56 M/mm3 (4.2-5.4); Red Cell Distribution Width 13.2 % (11.5-14.5); White Blood Count 12.7 K/mm3 (4.5-10.0)
[2021-08-02 05:58] LABS: Alanine Aminotransferase 11 U/L (4-35); Albumin Level 3.1 g/dL (3.5-5.1); Alkaline Phosphatase 51 U/L (38-126); Anion Gap 3 mmol/L (8-16); Aspartate Amino Transferase 43 U/L (14-36); Bilirubin,Total 0.5 mg/dL (0.2-1.3); Blood Urea Nitrogen 12 mg/dL (7-17); Calcium 7.5 mg/dL (8.4-10.2); Carbon Dioxide 30 mmol/L (22-30); Chloride 100 mmol/L (98-107); Estimated CRCL calculation 68 ml/min; Estimated Glomerular Filt Rate > 60; Glucose 101 mg/dL (65-110); Magnesium 1.8 mg/dL (1.6-2.3); Sodium 133 mmol/L (137-145)
[2021-08-02] MEDS: LEVOTHYROXINE SODIUM 112 MCG TABLET PO (06:01)
[2021-08-02] MEDS: LEVOTHYROXINE SODIUM 25 MCG TABLET PO (06:01)
[2021-08-02] MEDS: ALBUTEROL SULFATE (*SP) AEROSOL 1 PUFF INHALATION ×2 (09:03→20:48)
[2021-08-02] MEDS: CELECOXIB 200 MG CAPSULE PO (09:34)
[2021-08-02] MEDS: ASPIRIN 325 MG ENTERIC TABLET 650 MG PO (09:34)
[2021-08-02] MEDS: FERROUS SULFATE 324 MG TABLET PO ×2 (09:34→17:55)
[2021-08-02] MEDS: SENNA/DOCUSATE SODIUM TABLET 2 TAB PO ×2 (09:34→17:55)
[2021-08-02] MEDS: buPROPion HCL XL (24 HR) 150 MG TABCR 300 MG PO (09:35)
[2021-08-02] MEDS: TAMSULOSIN HCL 0.4 MG CAPSULE PO (09:35)
[2021-08-02] MEDS: polyethylene glycoL 3350 17 GM POWD.PACK PO (09:39)
--- NOTE | 2021-08-02 11:16 | PM.PNORT ---
Progress Note: A&P Additional Plan POD 3 IMPROVING. WILL CONTINUE TO OBSERVE HGB. Subjective Subjective Date/Time Seen: 08/02/21 11:16POD 3 IMPROVING. NO NEW COMPLAINTS. PAIN CONTROLLED. NO CALF PAIN Exam Extrem: Other: VSS AFEBRILE DRESSING DRY NV INTACT NEG HOMANS SIGN THIGH SOFT, MILD HEMATOMA LATERAL COMPARTMENT. Objective Data Vital Signs Vital Signs: Vital Signs - 24 hr 08/01/21 12:00 08/01/21 14:55 08/01/21 16:00 Temperature 37.1 C Pulse Rate 89 93 99 Respiratory Rate 16 Blood Pressure 120/60 Pulse Oximetry 97 08/01/21 18:15 08/01/21 19:58 08/01/21 20:00 Temperature 36.6 C Pulse Rate 86 85 85 Respiratory Rate 16 Blood Pressure 114/56 L Pulse Oximetry 96 94 08/01/21 22:00 08/02/21 00:00 08/02/21 02:00 Temperature 36.1 C L 36.1 C L Pulse Rate 86 97 86 Respiratory Rate 20 20 Blood Pressure 117/46 L 124/53 L Pulse Oximetry 98 98 08/02/21 04:00 08/02/21 06:00 08/02/21 08:00 Temperature 36.2 C L Pulse Rate 84 87 82 Respiratory Rate 18 Blood Pressure 120/45 L Pulse Oximetry 96 08/02/21 09:05 08/02/21 10:00 Temperature 36.9 C Pulse Rate 105 H 94 Respiratory Rate 16 Blood Pressure 110/58 L Pulse Oximetry 95 95 Intake/Output Intake/Output: Intake & Output 07/30/21 07/31/21 08/01/21 08/02/21 23:59 23:59 23:59 23:59 Intake Total 4120 2190 1140 660 Output Total 3495 750 400 Balance 4120 -1305 390 260 Meds/Results Medications: Active Medications Generic Name Dose Route Start Last Admin Trade Name Freq PRN Reason Stop Dose Admin Acetaminophen 650 mg 07/30/21 14:54 Acetaminophen 325 Mg Tablet PO Q6H PRN Mild Pain (1-3) or Fever Albuterol 1 puff 07/30/21 20:00 08/02/21 09:03 Albuterol Sulfate (*Sp) Aerosol 1 Puff INHALATION 1 puff Q12HRT KARL Administration Amlodipine Besylate 10 mg 07/31/21 09:00 07/31/21 08:19 Amlodipine Besylate 5 Mg Tablet PO Not Given DAILY [facility] Aspirin 650 mg 07/31/21 09:00 08/02/21 09:34 Aspirin 325 Mg Enteric Tablet PO 650 mg DAILY KARL Administration Atorvastatin Calcium 20 mg 07/30/21 21:00 08/01/21 20:29 Atorvastatin 20 Mg Tablet PO 20 mg HS KARL Administration Bupropion HCl 300 mg 07/31/21 09:00 08/02/21 09:35 Bupropion Hcl Xl (24 Hr) 150 Mg Tabcr PO 300 mg DAILY KARL Administration Celecoxib 200 mg 07/31/21 09:00 08/02/21 09:34 Celecoxib 200 Mg Capsule PO 200 mg DAILY [facility] Administration Diazepam 5 mg 07/30/21 14:54 Diazepam (*Crx) 5 Mg Tablet PO Q6H PRN Anxiety/Muscle Spasm Ferrous Sulfate 324 mg 08/01/21 17:00 08/02/21 09:34 Ferrous Sulfate 324 Mg Tablet PO 324 mg BIDWM KARL Administration Hydrochlorothiazide 12.5 mg 07/31/21 09:00 07/31/21 08:19 Hydrochlorothiazide 12.5 Mg Capsule PO 08/30/21 08:59 Not Given DAILY [facility] Hydroxyzine HCl 50 mg 07/30/21 14:54 Hydroxyzine Hcl 25 Mg Tablet PO Q4H PRN Itching Levothyroxine Sodium 25 mcg 07/31/21 06:30 08/02/21 06:01 Levothyroxine Sodium 25 Mcg Tablet PO 25 mcg DAILY@0630 [facility] Administration Levothyroxine Sodium 112 mcg 07/31/21 06:30 08/02/21 06:01 Levothyroxine Sodium 112 Mcg Tablet PO 112 mcg DAILY@0630 [facility] Administration Lisinopril 20 mg 07/31/21 09:00 07/31/21 08:19 Lisinopril 20 Mg Tablet PO 08/30/21 08:59 Not Given DAILY [facility] Miscellaneous Information 0 each 07/30/21 00:01 NovaPlanner Is Nonformulary - We Carry Lactinex Or Florastor Probiotics XX 08/29/21 00:00 CLARIFY [facility] Morphine Sulfate 3 mg 07/30/21 14:54 Morphine Sulfate (*Crx) 4 Mg/Ml Inj IV PUSH Q3H PRN Pain Rated 7-10 Naloxone HCl 0.1 mg 07/30/21 14:54 Naloxone Hcl 0.4 Mg/Ml Vial IV PUSH Q2M PRN Opiate Reversal Non-Formulary Medication 1 cap 07/31/21 09:00 L. Gasseri-B. Bifidum-B Longum [[facility]] PO 08/30/21 08:59 DAILY KARL Ondansetron HCl 4 mg
--- NOTE | 2021-08-02 11:26 | PM.IMPN ---
Progress Note: A&P Assessment and Plan (1) Leukocytosis: Code(s): D72.829 - Elevated white blood cell count, unspecified Status: Acute Assessment and Plan: White blood cell count has improved to 12.7 today. The leukocytosis may have been very well secondary to patient's surgical procedure. Urine culture was negative chest x-ray showed no acute cardiopulmonary process. Will continue to trend white blood cell count while patient is hospitalized. (2) S/P total hip arthroplasty: Qualifiers: Laterality: right Qualified Code(s): Z96.641 - Presence of right artificial hip joint Code(s): Z96.649 - Presence of unspecified artificial hip joint Status: Acute Assessment and Plan: POD 3 Surgical procedure performed on 07/30/21 Ortho to manage post op care Cefazolin post op Pain management ordered Zofran for antiemetic DVT prophylaxis deferred to ortho (3) Hypothyroidism: Code(s): E03.9 - Hypothyroidism, unspecified Status: Acute Assessment and Plan: TSH within normal limits. Continue home levothyroxine 137mcg PO Daily (4) Hypertension: Code(s): I10 - Essential (primary) hypertension Status: Acute Assessment and Plan: Patient's blood pressure has been stable with home medications restarted. Will adjust medications accordingly for optimal blood pressure control. (5) Dyslipidemia: Code(s): E78.5 - Hyperlipidemia, unspecified Status: Acute Assessment and Plan: Continue home atorvastatin 20mg PO HS (6) Urinary retention: Code(s): R33.9 - Retention of urine, unspecified Status: Acute Assessment and Plan: Patient has had no further urinary retention states she is voiding without any difficulty. Urinalysis was negative for any infection. (7) Anemia: Code(s): D64.9 - Anemia, unspecified Status: Acute Assessment and Plan: H/H 7.9/24.2 Anemia labs Iron 19, TIBC 287, % sat 7, transferrin 204, Ferritin pending, B12 246, Folate 6.6 Ferrous sulfate started Stated she received one unit of PRBC Continue to trend labs Secondary to surgery and also iron deficiency (8) Hypotension after procedure: Code(s): I95.81 - Postprocedural hypotension Status: Resolved Assessment and Plan: Blood pressure stable at this time. Patient has been restarted on home medications and has had no difficulty. Will continue to trend blood pressures. Subjective Date/time seen: 08/02/21 11:26 Patient states she is feeling significantly improved and urinating without any difficulty at this time. Patient is denying any pain at this time. Patient denies any chest pain, shortness breast, lightheadedness, dizziness, syncopal, or near syncopal episodes. Patient states she feels much improved today and is ready to work with therapy. Review of Systems Review of Systems: A 12 point review of systems was completed patient all pertinent positive and negative per HPI the remainder are unremarkable. Exam Narrative: Constitutional: Patient is well-nourished in no acute distress. Patient is alert and oriented x3 HEENT: Moist mucous membranes. No scleral icterus. No lymphadenopathy. Neck: No carotid bruits noted no JVD noted Lungs: Lung sounds are clear to auscultation bilaterally. No accessory muscle use. No rhonchi, rales, or wheezes noted. Cardiovascular: Apical pulse is regular rate and rhythm. S1-S2 noted, no S3 or S4 noted. No gallops, murmurs, or rubs noted. Abdomen: Soft, round, and nontender. No palpable masses. Extremities: No edema. Nontender. Skin: No rashes or lesions. Warm and dry. Skin is intact. Dressing to right hip range drain intact with no drainage noted. There is no erythema noted to surgical site around dressing. Neurological: No focal neurological deficits. Cranial nerves II-XII gr
[2021-08-02 11:49] LABS: Hematocrit 25.5 % (37.0-47.0); Hemoglobin 8.4 g/dL (12.0-15.0)
[2021-08-02] MEDS: ATORVASTATIN 20 MG TABLET PO (20:03)
[2021-08-03] VITALS (7 sets, daily range): BP systolic 112–127; BP diastolic 51–58; PULSE 72–89; RESP 14–18; TEMP 36.6; O2SAT 94–97
[2021-08-03 05:12] LABS: Basophils Absolute Auto 0.1 K/mm3 (0.0-0.1); Basophils Percent Auto 0.9 % (0.2-1.2); Eosinophils Absolute Auto 0.3 K/mm3 (0-0.3); Hematocrit 25.2 % (37.0-47.0); Immature Granulocyte Absolute 0.07 K/mm3 (0.00-0.031); Immature Granulocyte Percent A 0.7 % (0-0.5); Lymphocytes Absolute Auto 1.59 K/mm3 (0.9-3.2); Lymphocytes Percent Auto 15.2 % (18.3-44.2); Mean Corpuscular HGB Conc 31.7 g/dl (32-36); Mean Corpuscular Hemoglobin 31.3 pg (26-34); Mean Corpuscular Volume 98.4 fl (80-100); Mean Platelet Volume 8.8 fl (7.4-10.4); Monocytes Percent Auto 9.5 % (2.6-8.5); Neutrophils Absolute Auto 7.4 K/mm3 (1.3-6.7); Neutrophils Percent Auto 70.7 % (45.5-73.1); Platelet Count Result 245 k/mm3 (150-375); Red Blood Count 2.56 M/mm3 (4.2-5.4); Red Cell Distribution Width 13.2 % (11.5-14.5); White Blood Count 10.5 K/mm3 (4.5-10.0)
[2021-08-03 05:23] LABS: Anion Gap 4 mmol/L (8-16); Blood Urea Nitrogen 11 mg/dL (7-17); Calcium 7.9 mg/dL (8.4-10.2); Carbon Dioxide 28 mmol/L (22-30); Chloride 102 mmol/L (98-107); Estimated CRCL calculation 60 ml/min; Estimated Glomerular Filt Rate > 60; Glucose 109 mg/dL (65-110); Potassium 3.6 mmol/L (3.4-5.0); Sodium 134 mmol/L (137-145)
[2021-08-03] MEDS: LEVOTHYROXINE SODIUM 25 MCG TABLET PO (05:32)
[2021-08-03] MEDS: LEVOTHYROXINE SODIUM 112 MCG TABLET PO (05:32)
[2021-08-03] MEDS: buPROPion HCL XL (24 HR) 150 MG TABCR 300 MG PO (08:38)
[2021-08-03] MEDS: TAMSULOSIN HCL 0.4 MG CAPSULE PO (08:38)
[2021-08-03] MEDS: ASPIRIN 325 MG ENTERIC TABLET 650 MG PO (08:38)
[2021-08-03] MEDS: FERROUS SULFATE 324 MG TABLET PO (08:38)
[2021-08-03] MEDS: SENNA/DOCUSATE SODIUM TABLET 2 TAB PO (08:38)
[2021-08-03] MEDS: CELECOXIB 200 MG CAPSULE PO (08:38)
[2021-08-03] MEDS: polyethylene glycoL 3350 17 GM POWD.PACK PO (08:39)
[2021-08-03] MEDS: ALBUTEROL SULFATE (*SP) AEROSOL 1 PUFF INHALATION (08:53)
--- NOTE | 2021-08-03 11:19 | PM.IMCN ---
Assessment and Plan Assessment and plan (1) Leukocytosis: Qualifiers: Leukocytosis type: unspecified Qualified Code(s): D72.829 - Elevated white blood cell count, unspecified Code(s): D72.829 - Elevated white blood cell count, unspecified Status: Acute Assessment and Plan: White blood cell count has improved to 10.5 today. The leukocytosis may have been very well secondary to patient's surgical procedure. Urine culture was negative chest x-ray showed no acute cardiopulmonary process. No objective signs of infection, suggests that inflammatory response from surgical procedure caused elevation. (2) S/P total hip arthroplasty: Qualifiers: Laterality: right Qualified Code(s): Z96.641 - Presence of right artificial hip joint Code(s): Z96.649 - Presence of unspecified artificial hip joint Status: Acute Assessment and Plan: POD 4 Surgical procedure performed on 07/30/21 Ortho to manage post op care Cefazolin post op Pain management ordered Zofran for antiemetic DVT prophylaxis deferred to ortho (3) Hypothyroidism: Qualifiers: Hypothyroidism type: unspecified Qualified Code(s): E03.9 - Hypothyroidism, unspecified Code(s): E03.9 - Hypothyroidism, unspecified Status: Acute Assessment and Plan: TSH within normal limits. Continue home levothyroxine 137mcg PO Daily (4) Hypertension: Qualifiers: Hypertension type: unspecified Qualified Code(s): I10 - Essential (primary) hypertension Code(s): I10 - Essential (primary) hypertension Status: Acute Assessment and Plan: Patient's blood pressure has been stable with home medications restarted. Will adjust medications accordingly for optimal blood pressure control. (5) Dyslipidemia: Code(s): E78.5 - Hyperlipidemia, unspecified Status: Acute Assessment and Plan: Continue home atorvastatin 20mg PO HS (6) Urinary retention: Code(s): R33.9 - Retention of urine, unspecified Status: Resolved Assessment and Plan: Resolved (7) Anemia: Qualifiers: Anemia type: iron deficiency Code(s): D64.9 - Anemia, unspecified Status: Acute Assessment and Plan: H/H 7.9/24.2 Anemia labs Iron 19, TIBC 287, % sat 7, transferrin 204, Ferritin pending, B12 246, Folate 6.6 Ferrous sulfate started, and should be continued at discharge. Secondary to surgery and also iron deficiency (8) Hypotension after procedure: Code(s): I95.81 - Postprocedural hypotension Status: Resolved Assessment and Plan: - Blood pressure stable at this time. Patient has been restarted on home medications and has had no difficulty. Will continue to trend blood pressures. HPI Data of Consult Consult date: 08/03/21 Requesting Physician: HUSSEIN Orellana Primary Care Provider: Migel Stevens MD Consult Narrative Narrative: Ela Vázquez is a 66 year old female with significant PMH of HTN, Hypothyroidism, HLD who underwent an elective Right total hip arthroplasty by Dr. Nicholson on 07/30/21. Hospitalist Service was consulted by Orthopedics who are the primary team caring for this patient. Pt. has had difficulty urinating originally post operatively when her catheter was removed, but that has now resolved. in addition, she has had some anemia, that has been followed and although is low, is steady. It is a combination of Iron deficiency and post-operative anemia. Her Hgb is stable today as are all of her VS, as she once had Hypotension. She has no complaints of pain with exception of tolerable pain to the operative site. No CP, Dyspnea, N/V/D. I discussed with her in length today the need for Iron supplementation despite being concerned of Constipation. Bowel management regimens may be altered to meet her needs, and the b
[2021-08-03 12:17] LABS: Hematocrit 26.3 % (37.0-47.0); Hemoglobin 8.4 g/dL (12.0-15.0)
--- NOTE | 2021-08-03 15:03 | PM.PNORT ---
Progress Note: A&P Additional Plan POD 4 DOING WELL. VOIDING. PASSED PT. OK TO DC HOME F/U IN 3 WEEKS. Subjective Subjective Date/Time Seen: 08/03/21 15:03 POD 4 DOING WELL. PAIN CONTROLLED. NO CALF PAIN Exam Extrem: Other: VSS AFENBRILE DRESSING DRY NV INTACT NEG HOMANS SIGN, THIGH SOFT Objective Data Vital Signs Vital Signs: Vital Signs - 24 hr 08/02/21 16:00 08/02/21 18:30 08/02/21 19:32 Temperature 37.1 C 36.3 C L Pulse Rate 82 80 87 Respiratory Rate 16 16 Blood Pressure 132/70 128/47 L Pulse Oximetry 95 92 08/02/21 20:00 08/02/21 20:50 08/03/21 00:00 Temperature Pulse Rate 92 78 Respiratory Rate Blood Pressure Pulse Oximetry 94 08/03/21 03:28 08/03/21 04:00 08/03/21 08:00 Temperature 36.6 C Pulse Rate 77 72 89 Respiratory Rate 14 Blood Pressure 112/51 L Pulse Oximetry 95 08/03/21 09:53 08/03/21 10:00 08/03/21 12:00 Temperature 36.6 C Pulse Rate 85 77 Respiratory Rate 18 Blood Pressure 127/58 L Pulse Oximetry 94 97 Intake/Output Intake/Output: Intake & Output 07/31/21 08/01/21 08/02/21 08/03/21 23:59 23:59 23:59 23:59 Intake Total 2190 1140 1620 780 Output Total 3495 750 400 Balance -6104 059 4527 780 Meds/Results Medications: Active Medications Generic Name Dose Route Start Last Admin Trade Name Freq PRN Reason Stop Dose Admin Acetaminophen 650 mg 07/30/21 14:54 Acetaminophen 325 Mg Tablet PO Q6H PRN Mild Pain (1-3) or Fever Albuterol 1 puff 07/30/21 20:00 08/03/21 08:53 Albuterol Sulfate (*Sp) Aerosol 1 Puff INHALATION 1 puff Q12HRT [facility] Administration Amlodipine Besylate 10 mg 07/31/21 09:00 07/31/21 08:19 Amlodipine Besylate 5 Mg Tablet PO Not Given DAILY KARL Aspirin 650 mg 07/31/21 09:00 08/03/21 08:38 Aspirin 325 Mg Enteric Tablet PO 650 mg DAILY KARL Administration Atorvastatin Calcium 20 mg 07/30/21 21:00 08/02/21 20:03 Atorvastatin 20 Mg Tablet PO 20 mg HS KARL Administration Bupropion HCl 300 mg 07/31/21 09:00 08/03/21 08:38 Bupropion Hcl Xl (24 Hr) 150 Mg Tabcr PO 300 mg DAILY KARL Administration Celecoxib 200 mg 07/31/21 09:00 08/03/21 08:38 Celecoxib 200 Mg Capsule PO 200 mg DAILY KARL Administration Diazepam 5 mg 07/30/21 14:54 Diazepam (*Crx) 5 Mg Tablet PO Q6H PRN Anxiety/Muscle Spasm Ferrous Sulfate 324 mg 08/01/21 17:00 08/03/21 08:38 Ferrous Sulfate 324 Mg Tablet PO 324 mg BIDWM KARL Administration Hydrochlorothiazide 12.5 mg 07/31/21 09:00 07/31/21 08:19 Hydrochlorothiazide 12.5 Mg Capsule PO 08/30/21 08:59 Not Given DAILY [facility] Hydroxyzine HCl 50 mg 07/30/21 14:54 Hydroxyzine Hcl 25 Mg Tablet PO Q4H PRN Itching Levothyroxine Sodium 25 mcg 07/31/21 06:30 08/03/21 05:32 Levothyroxine Sodium 25 Mcg Tablet PO 25 mcg DAILY@0630 [facility] Administration Levothyroxine Sodium 112 mcg 07/31/21 06:30 08/03/21 05:32 Levothyroxine Sodium 112 Mcg Tablet PO 112 mcg DAILY@0630 [facility] Administration Lisinopril 20 mg 07/31/21 09:00 07/31/21 08:19 Lisinopril 20 Mg Tablet PO 08/30/21 08:59 Not Given DAILY [facility] Morphine Sulfate 3 mg 07/30/21 14:54 Morphine Sulfate (*Crx) 4 Mg/Ml Inj IV PUSH Q3H PRN Pain Rated 7-10 Naloxone HCl 0.1 mg 07/30/21 14:54 Naloxone Hcl 0.4 Mg/Ml Vial IV PUSH Q2M PRN Opiate Reversal Non-Formulary Medication 1 cap 07/31/21 09:00 08/02/21 23:22 L. Gasseri-B. Bifidum-B Longum [[facility]] PO 08/30/21 08:59 Not Given DAILY [facility] Ondansetron HCl 4 mg 07/30/21 14:54 Ondansetron Inj 4 Mg/2 Ml Vial IV PUSH Q4H PRN Nausea And Vomiting Oxycodone HCl 5 mg 07/30/21 14:54 07/31/21 21:59 Oxycodone Hcl (*Crx) 5 Mg Tab Ir PO 5 mg Q4H PRN Administration Pain Rated 4-6 Polyethylene Glycol 17 gm 07/31/21 09:00 08/03/21 08:39 Polyethylene Glycol 3350 17 Gm Powd.Pack PO
--- NOTE | 2021-08-03 15:05 | PM.DS ---
DS: Admitting Diagnosis Discharge Date 08/03/21 Admitting Diagnosis RIGHT HIP DJD DS: Discharge Diagnosis Discharge Diagnosis (1) S/P total hip arthroplasty: Qualifiers: Laterality: right Qualified Code(s): Z96.641 - Presence of right artificial hip joint Code(s): Z96.649 - Presence of unspecified artificial hip joint Status: Acute DS: Summary Hospital Course Reason for hospitalization: R RACHAEL Hospital Course: PATIENT WAS ADMITTED S/P TOTAL R RACHAEL ARTHROPLASTY FOR POSTOPERATIVE MEDICAL MANAGEMENT, PAIN CONTROL AND MOBILIZATION WITH PHYSICAL AND OCCUPATIONAL THERAPY. THE PATIENT PROGRESSED WELL WITH PT/OT. LABS AND VITALS REMAINED STABLE AND PAIN WELL CONTROLLED. THE PATIENT HAS BEEN CLEARED TO BE DISCHARGED HOME. FOLLOW UP APPOINTMENT SCHEDULED. DISCHARGE INSTRUCTIONS DISCUSSED AT LENGTH WITH THE PATIENT. MEDICATIONS REVIEWED. Time spent discussing smoking cessation with patient: 3 to 10 minutes Status at Discharge Functional status at discharge: uses cane/walker Time Spent with Patient Time attestation: Total time spent providing and/or coordinating discharge services: Time spent: Less than 30 minutes DS: Data Data Completed and Pending Labs on day of discharge: Labs from last 24 hours 08/03/21 08/03/21 08/03/21 12:11 04:53 04:53 WBC 10.5 H RBC 2.56 L Hgb 8.4 L 8.0 L Hct 26.3 L 25.2 L MCV 98.4 MCH 31.3 MCHC 31.7 L RDW 13.2 Plt Count 245 MPV 8.8 Immature Gran % (Auto) 0.7 H Neut % (Auto) 70.7 Lymph % (Auto) 15.2 L [place] % (Auto) 9.5 H Eos % (Auto) 3.0 Baso % (Auto) 0.9 Lymph # (Auto) 1.59 [place] # (Auto) 1.0 H Eos # (Auto) 0.3 Baso # (Auto) 0.1 Abs Immat Gran (auto) 0.07 H Absolute Neuts (auto) 7.4 H Absolute Nucleated RBC 0.0 Nucleated RBC % 0.0 Sodium 134 L Potassium 3.6 Chloride 102 Carbon Dioxide 28 Anion Gap 4 L BUN 11 Creatinine 0.90 Estim Creat Clear Calc 60 Estimated GFR > 60 Glucose 109 Calcium 7.9 L Discharge Plan Discharge Attending physician on discharge: Erwin Nicholson Consulting providers: Vicki,Barbara Discharging Clinician: Heather Nolasco Anticipated Discharge Date/Time: 08/01/21 08:00 Patient Disposition: Home Health Service Activity: may shower, no driving and follow weight bearing status Diet: as tolerated Wound Care Instructions: follow printed instructions Discharge Instructions: Per Care Coordination, patient to discharge with [facility] ([phone]) for PT/OT and detention services. Post Op Total Hip Replacement Instructions Dr. Erwin Nicholson [phone] ? Your dressing will be changed prior to your discharge. You will be sent home with one additional dressing to be changed on post op day 7 by the home health RN. You may remove the dressing on post op day 14. Your incision was closed with dermabond, allow the dermabond to fall off naturally once your dressing is removed. Do not pull at the dermabond or disrupt incision healing. ? You may shower with your dressing but do not submerge in a bath tub. ? Do not drive or operate machinery until you are released by Dr. Nicholson. ? Do not walk without a walker for any reason until you are released by Dr. Nicholson. ? Continue to apply ice to the hip intermittently for additional pain relief. Protect your skin with a towel or pillow case. ? Continue to follow strict total hip replacement precautions. ? Your first post op appointment was sent to you via mail preoperatively. If you have any questions or are unable to make your appointment, please contact our office for scheduling questions. ? Your medications have been sent to your pharmacy. You have been sent home with pain medication. We have also sent you with a stool softener as narcotics can cause constipation. Please keep this in mind during your postoperative recovery. If you are not experiencing regular bowel mov
== END 2021-08-03 16:45 | disposition home health service (06) ==
LOC: ANHSURGERY 12:06 → ANHICU 12:06 → ANH2MED 14:05
PROVIDERS: Nurse Practitioner; Nurse Practitioner Adult Health; Admitting Provider Orthopaedic Surgery; PCP Family Medicine; Visit Provider Nurse Practitioner Adult Health
PROC: (CPT 27130; principal; 2021-07-30 07:30)
DX: M16.11 Unilateral primary osteoarthritis, right hip (principal); I95.81 Postprocedural hypotension; R33.9 Retention of urine, unspecified; D64.9 Anemia, unspecified; D50.9 Iron deficiency anemia, unspecified; D72.829 Elevated white blood cell count, unspecified; E78.5 Hyperlipidemia, unspecified; E03.9 Hypothyroidism, unspecified; J44.9 Chronic obstructive pulmonary disease, unspecified; I10 Essential (primary) hypertension; Z90.49 Acquired absence of other specified parts of digestive tract; Z96.642 Presence of left artificial hip joint; Z87.891 Personal history of nicotine dependence
CPT/HCPCS: 27130; 36415; 36430; 71045; 73501; 80048; 80053; 80307; 81001; 81003; 82040; 82607; 82728; 82746; 83036; 83540; 83550; 83615; 83735; 84443; 84466; 85014; 85018; 85025; 85610; 85730; 86850; 86900; 86901; 86920; 87081; 93005; 94640; 97110; 97116; 97161; 97165; 97530; 97535; A9270; C1776; G0378; J0171; J0690; J1100; J1170; J1885; J2250; J2270; J2370; J2405; J2704; J2710; J2795; J3010; J7030; J7050; J7120; P9016

== ENCOUNTER 2021-08-28 09:46 | Outpatient (RCR) | payer MEDICARE, SELFPAY ==
--- NOTE | 2021-08-28 10:50 | PTOPEVAL ---
Thank you for referring Ela Vázquez to [facility] The patient is scheduled to be seen for therapy? __3__x/week for 12 visits. Please review, sign, date and return this plan of care WESTLEY. I agree with and certify that the following plan of care is medically necessary. Referring Physician Date Admitting Provider: Attending Provider: Erwin Nicholson MD Referring Provider: *PT Outpatient Evaluation Start: 08/28/21 10:00 Freq: Status: Active Protocol: Document 08/28/21 10:00 ELIAS (Rec: 08/28/21 10:49 ELIAS [id number]) Therapy Assessment Status Assessment Status Assessment Status Evaluation Outpatient Past Medical History Neurological History Hx Neurological Disorders No Significant History Cardiovascular History Hx Hypercholesterolemia Yes Hx Hypertension Yes Respiratory History Hx Chronic Obstructive Pulmonary Disease Yes: USES INHALER (COPD) Gastrointestinal History Hx Other Gastrointestinal Disorders Yes: CHRONIC CONSTIPATION Genitourinary History Hx Genitourinary Disorders No Significant History Musculoskeletal History Hx Arthritis Yes: RT HIP Hx Crutches or Walker Use Yes: WALKER Query Text:If Yes, Enter Crutches, Walker, or Both in the Comment Hx Joint Replacement Yes: [address] [facility] [address] DAVE Hx Orthopedic Surgery Yes: 1961 RT WRIST TENDON AND LIGAMENT REPAIR- GLASS SHATTERED Hx Other Musculoskeletal Disorders Yes: OA RT HIP Hematological History Hx Hematological Disorders No Significant History Endocrine History Hx Hypothyroidism Yes HEENT History Hx Other HEENT Disorders Yes: WEARS GLASSES.FULL DENTURES Integumentary History Hx Skin Disorders No Significant History Reproductive History Hx Post Menopausal Yes Psychosocial History Hx Depression Yes Hx Recent Lifestyle Changes Yes: SON 2020 Pain History Has Past Pain Affected Your Daily Life Yes: RT HIP Anesthesia History Hx Anesthesia Reactions No Significant History Evaluation Information Problem Diagnosis right RACHAEL Onset 07/30/21 Subjective Information Pt. reports that she underwent Query Text:As Reported By Patient/ RACHAEL on 07/30/21. She has been Family doing HH therapy and was discharged 2 weeks ago. Pt. reports she is still using a ww for walking and has not yet returned to driving. She states that she is doing some seated and standing exercise
--- NOTE | 2021-09-26 14:19 | PTOPEVAL ---
Thank you for referring Ela Vázquez to [facility].? The patient is scheduled to be seen for therapy? ____x/week for ___ weeks. Please review, sign, date and return this plan of care WESTLEY. I agree with and certify that the following plan of care is medically necessary. Referring Physician Date Admitting Provider: Attending Provider: Erwin Nicholson MD Referring Provider: *PT Outpatient Evaluation Start: 08/28/21 10:00 Freq: Status: Active Protocol: Document 09/26/21 13:30 [facility] (Rec: 09/26/21 14:18 [facility] [id number]) Outpatient Past Medical History Neurological History Hx Neurological Disorders No Significant History Cardiovascular History Hx Hypercholesterolemia Yes Hx Hypertension Yes Respiratory History Hx Chronic Obstructive Pulmonary Disease Yes: USES INHALER (COPD) Gastrointestinal History Hx Other Gastrointestinal Disorders Yes: CHRONIC CONSTIPATION Genitourinary History Hx Genitourinary Disorders No Significant History Musculoskeletal History Hx Arthritis Yes: RT HIP Hx Crutches or Walker Use Yes: WALKER Query Text:If Yes, Enter Crutches, Walker, or Both in the Comment Hx Joint Replacement Yes: [address] [facility] [address] DAVE Hx Orthopedic Surgery Yes: 1962 RT WRIST TENDON AND LIGAMENT REPAIR- GLASS SHATTERED Hx Other Musculoskeletal Disorders Yes: OA RT HIP Hematological History Hx Hematological Disorders No Significant History Endocrine History Hx Hypothyroidism Yes HEENT History Hx Other HEENT Disorders Yes: WEARS GLASSES.FULL DENTURES Integumentary History Hx Skin Disorders No Significant History Reproductive History Hx Post Menopausal Yes Psychosocial History Hx Depression Yes Hx Recent Lifestyle Changes Yes: SON 2020 Pain History Has Past Pain Affected Your Daily Life Yes: RT HIP Anesthesia History Hx Anesthesia Reactions No Significant History Evaluation Information Problem Diagnosis right RACHAEL Onset 07/30/21 Additional Evaluation Detail LEFS = 30% functionally declined Subjective Information mrs. vázquez reports no brianna Query Text:As Reported By Patient/ ar the R hip this date. she Family reports at times the hip still feels a bit tight, but she is happy with her progress. Pain Assessment Timing of Pain Assessment Timing of Pain Assessment Assessment Self Report Self Report Pain Level 0 Pain Score Pain Score 0: Self Report Lower Extremity Range of Motion General Lower Extremity Range of Motion Ruth
== END 2021-09-26 15:07 | disposition home or self-care (01) ==
LOC: CHSPT 09:46
PROVIDERS: Visit Provider Orthopaedic Surgery
DX: Z98.890 Other specified postprocedural states (principal)
CPT/HCPCS: 97110; 97112; 97116; 97161

== ENCOUNTER 2024-04-14 18:46 | Emergency (ER) | payer MEDICARE, SELFPAY ==
--- NOTE | ~2024-04-14 | XR_ITS ---
XR abdomen/kub 1V Ordering provider: Jose Villegas MD History: . LOWER RIGHT ABDOMEN PAIN/CT INCONCLUSIVE DUE TO HARDWARE STR . Comparison: May 13, 2016 FINDINGS: BOWEL: Nonobstructive bowel gas pattern. ORGANOMEGALY: None. SIGNIFICANT PATHOLOGIC CALCIFICATIONS: 2 Faint calcifications seen in the right parasacral area with one of them seen in the previous study the second may represent a stone. Follow-up advised. OTHER: No free air is seen under the diaphragm. Bilateral hip arthroplasty. Degenerative changes of the spine. IMPRESSION: NO ACUTE ABDOMINAL FINDINGS. Possible stone in the right lower ureter Reviewed, dictated and finalized at location A. REL PATTERN MAKER
--- NOTE | ~2024-04-14 | CT_ITS ---
CT abdomen pelvis wo con Ordering provider: Jose Villegas MD History: 69 years Female with . LOWER RIGHT ABDOMEN PAIN INTO GROIN/NO HX OF STONES . Comparison: None. Technique: CT abdomen and pelvis without IV and without oral contrast. Automated exposure control and iterative reconstruction technique were employed. The dose-length product was 401.47 mGy-cm. Findings: VISUALIZED LOWER CHEST: Normal. UPPER ABDOMINAL ORGANS: Liver: Normal. Gallbladder: Contracted. Spleen: Normal. Stomach/duodenum: Normal. Pancreas: Normal. Adrenals: Normal. Kidneys: Left kidney is smaller than the right. Mild hydronephrotic changes of the right renal pelvis and upper ureter. Artifacts are seen in the are a of the lower ureter and presence of stone cannot be confirmed or excluded. Small cyst in the right kidney lower pole measuring 1.9 cm.. PELVIC ORGANS: The bladder is not demonstrated. BOWEL AND MESENTERY: Colon: No evidence of diverticulitis. Fecal material is seen in the right side of the colon.No eviden ce of appendicitis. Small Bowel: Normal. No obstruction. Peritoneum/mesentery: No free air or free fluid. No mesenteric lymphadenopathy. RETROPERITONEUM: Mild atheromatous disease of the abdominal aorta. No retroperitoneal lymphadenopat hy. MUSCULOSKELETAL: Superficial soft tissues: The superficial soft tissues are normal. Bones: Age appropriate degenerative changes of the spine. Bilateral hip arthroplasty. IMPRESSION: 1. Mild right hydronephrotic changes with minimal dilatation of the upper ureter. The lower ureter i s not demonstrated due to artifacts. Possibility of stone cannot be excluded. 2. Small left kidney. 3. The appendix was not demonstrated with no inflammatory changes in the right side of the abdomen. 4. Fecal material in the right side of the colon which may indicate constipation. Reviewed, dictated and finalized at location A. TIC WELD TECHNICIAN IMPRESSION: 1. Mild right hydronephrotic changes with minimal dilatation of the upper uret er. The lower ureter is not demonstrated due to artifacts. Possibility of stone cannot be excluded. 2. Small left kidney. 3. The appendix was not demonstrated with no inflammatory changes in the right side of the abdomen. 4. Fecal material in the right side of the colon which may indicate constipati on.
[2024-04-14 18:51] VITALS: BP 147/78; PULSE 115; RESP 18; TEMP 36.6; O2SAT 95
--- NOTE | 2024-04-14 19:16 | PC.NURSE ---
report to ricky westfall
[2024-04-14 19:18] LABS: Add Urine Microscopic? YES; Appearance Urine Clear (Clear); Bilirubin Urine Negative (Negative); Blood Urine Trace-intact (Negative); Color Urine Light Yellow (Yellow); Glucose Urine UA Negative (Negative); Ketones Urine Negative (Negative); Leukocyte Esterase Ur Negative LEU/UL (Negative); Nitrate Urine Negative (Negative); Protein Urine 2+ (Negative); Urobilinogen Urine 0.2 mg/dL (0.2-1.0)
--- NOTE | 2024-04-14 19:20 | ED.FEMALEGU ---
HPI - Female Genitourinary General Chief complaint: Urogenital-Female Stated complaint: uti symptoms Source: patient Mode of arrival: ambulatory Limitations: no limitations History of Present Illness HPI Narrative: Patient is a 69-year-old female with right lower quadrant pain and into the deep pelvis on the right since today. She had a UTI in the past week and was given Macrobid. Her UTI symptoms got better but now she is noticing a little bit of urinary frequency and dysuria today. No history of kidney stones. MD elicited complaint: dysuria and UTI Onset (ago): day(s) (1) Location of symptoms: RLQ Severity: moderate Female Urogenital Radiation: Suprapubic and R Flank Severity scale (1-10): 5 Quality of pain: sharp Consistency: constant Vaginal discharge: none Vaginal bleeding: none Urinary symptoms: Dysuria and Frequency Exacerbating factors: none Relieving factors: none Associated symptoms: abdominal pain Treatment prior to arrival: none Related Data Home Medications Medication Instructions Recorded Confirmed amlodipine 10 mg tablet 10 mg PO DAILY 09/06/20 07/30/22 atorvastatin 20 mg tablet 20 mg PO HS 09/06/20 07/30/22 lisinopril 20 1 tablet PO DAILY 09/06/20 07/30/22 mg-hydrochlorothiazide 12.5 mg tablet Lactobacills gasseri-Bifidobac 1 cap PO DAILY 07/25/21 07/30/22 bifidum,longum 1.5 billion cell capsule ([employer]) albuterol sulfate 90 mcg/actuation 1 puff inhalation BID 07/25/21 07/30/22 aerosol inhaler (Ventolin HFA) bupropion HCl 300 mg 24 hr tablet, 300 mg PO DAILY 07/25/21 07/30/22 extended release docusate sodium 50 mg capsule 50 mg PO DAILY 07/25/21 07/30/22 (Stool Softener) levothyroxine 137 mcg tablet 137 mcg PO DAILY 07/25/21 07/30/22 Allergies Allergy/AdvReac Type Severity Reaction Status Date / Time No Known Allergies Allergy Verified 07/30/22 10:12 Review of Systems Review of Systems: All systems reviewed & are unremarkable except as noted in HPI and below Constitutional: Constitutional: Reports no additional constitutional complaints Eyes: Eyes: Reports no additional eye complaints ENT: Reports system reviewed and no additional complaints, except as documented Cardiovascular: Cardiovascular: Reports no additional cardiovascular complaints Respiratory: Respiratory: Reports no additional respiratory complaints Gastrointestinal: Gastrointestinal: Reports no additional gastrointestinal complaints Genitourinary: Genitourinary: Reports no additional female genitourinary complaints Musculoskeletal: Musculoskeletal: Reports no additional musculoskeletal complaints Integumentary/Breasts: Skin/Breast: Reports system reviewed and no additional complaints, except as docu Neurologic: Reports system reviewed and no additional complaints, except as documented Psychiatric: Psychiatric: Reports no additional psychiatric complaints Endocrine: Endocrine: Reports no additional endocrine complaints Hematologic/Lymphatic: Hematologic/Lymphatic: Reports no additional hematologic/lymphatic complaints Allergic/Immunologic: Allergic/Immunologic: Reports no additional allergic/immunologic complaints PMFSH Past Medical History Medical History Arthritis Constipation COPD (chronic obstructive pulmonary disease) Depression Dyslipidemia High cholesterol Hypertension Hypotension after procedure Hypothyroidism Mood disorder Urinary retention Wears glasses Surgical History Surgical History History of appendectomy History of left hip replacement History of surgery on wrist History of tubal ligation S/P total hip arthroplasty Family History Family History Other Asthma Heart disease High cholesterol Hypertension Social History Social History Social History: Patient lives at home herself. She does have a pet irene retriever and 2 cats. Patient states that her daughter would be will be her surrogate. Patient wishes to be a full code at this time. Smoking packs per day: 1.5 Smoking cigarettes per day: 30.0 Years smoked: 40 Smoking pack-years: 60.00 Smoking status: Never smoker Tobacco type: cigarettes Smoking end date: 05/17/12 Additional smoking assessment comments: DENIES ANY FORM OF TOBACCO USE Alcohol intake: never Substance use: never Living arrangements: with family Occupation/Education: retired Additional occupation/education comments: From the [place] of [place] Gender identity (if verbalized by the patient): Female Sexual Orientation (if Verbalized by the Patient): Straight or Heterosexual Spiritual care concerns: Yes (Mosque) Agree to blood products: Yes Exam Const: General: healthy appearing Nutritional Appearance: well nourished Orientation/consciousness: patient oriented x3 HENMT: Head: normal to inspection Ears: external ears normal Face/Nose/Sinus: Normal external nose present Eyes: Conjunctivae: conjunctivae normal Pupils: Equal, round and reactive pupils present EOM: EOMs intact bilaterally Neck: Neck: normal visual inspection Chest: Chest palpation & inspection: normal inspection of the chest Resp: Effort & Inspection: normal respiratory effort and not labored Auscultation: clear to auscultation bilaterally and no crackles Cardio: Rate: regular rate Rhythm: regular rhythm Heart sounds: no murmurs GI: Inspection: non-distended GI Palp: Yes Soft to palpation, Yes Tenderness to palpation present (GI) ( Right lower quadrant and into the deep pelvis on the right), No Guarding due to palpation present (GI), No Rigid due to palpation, No Hernia present, No Palpable mass present and No Rebound tenderness present Auscultation: normal bowel sounds : General: Yes bladder normal to palpation Back/Spine/Pelvis: Back: no CVA tenderness Skin: General skin exam: normal color Rashes: no rashes Wounds: no wounds Neuro: General: patient oriented x3 Cranial nerves: Yes Nystagmus not present Speech: normal speech Gait exam (Neuro): Normal gait present Extrem: General: normal to inspection Psych: Appearance: grossly normal Mental Status: mental status grossly normal Affect: normal affect Attitude: cooperative Course Vital Signs Vital signs: Vital Signs Temperature 36.6 C 04/14/24 18:51 Pulse Rate 115 H 04/14/24 18:51 Respiratory Rate 18 04/14/24 18:51 Blood Pressure 147/78 H 04/14/24 18:51 Pulse Oximetry 95 04/14/24 18:51 Oxygen Delivery Room Air 04/14/24 18:51 Temperature 36.7 C 04/14/24 23:07 Pulse Rate 80 04/14/24 23:07 Respiratory Rate 18 04/14/24 23:07 Blood Pressure 140/83 04/14/24 23:07 Pulse Oximetry 97 04/14/24 23:07 Oxygen Delivery Room Air 04/14/24 23:07 MDM - Female Genitourinary MDM Narrative Medical decision making narrative: patient is a 69-year-old female with right lower quadrant pain. We will get a CT scan of the abdomen and pelvis to look for kidney stone. UA was nonspecific. But there was some blood. She is on Macrobid. Lab Data Attestation: I reviewed the patient's lab results. 04/14/24 22:11 04/14/24 22:11 Labs: Lab Results 04/14/24 04/14/24 Range/Units 18:55 22:11 WBC 10.3 (4.8-10.8) K/mm3 RBC 4.17 L (4.20-5.40) M/mm3 Hgb 12.9 (11.7-13.8) g/dL Hct 37.9 (35.0-42.0) % MCV 90.9 (78.0-102.0) fL MCH 30.9 (27.0-31.0) pg MCHC 34.0 (32-36) g/dL RDW 12.3 (11.6-14.4) % Plt Count 288 (150-420) K/mm3 MPV 8.3 L (9.2-11.8) fl Immature Gran % (Auto) 0.3 H (0.0-0.0) % Neut % (Auto) 70.4 H (50.0-70.0) % Lymph % (Auto) 17.9 L (18.0-42.0) % [facility] % (Auto) 8.4 (2.0-11.0) % Eos % (Auto) 2.0 (1.0-6.0) % Baso % (Auto) 1.0 (0.0-1.0) % Lymph # (Auto) 1.84 (1.10-4.50) K/mm3 [facility] # (Auto) 0.86 (0.10-0.90) K/mm3 Eos # (Auto) 0.21 (0.02-0.50) K/mm3 Baso # (Auto) 0.10 (0.00-0.10) K/mm3 Abs Immat Gran (auto) 0.03 H (0.00-0.00) K/mm3 Absolute Neuts (auto) 7.24 H (1.70-7.20) K/mm3 Absolute Nucleated RBC 0.00 (0.00-0.00) K/mm3 Nucleated RBC % 0.0 (0-0.0) % Sodium 138 (136-145) mmol/L Potassium 4.1 (3.5-5.1) mmol/L Chloride 102 (98-108) mmol/L Carbon Dioxide 28 (21-32) mmol/L Anion Gap 8 (4-12) mmol/L BUN 20 H (7-18) mg/dL Creatinine 1.33 H (0.55-1.02) mg/dL Estim Creat Clear Calc 39 ml/min Estimated GFR 39 L (59 - ) Glucose 122 H (70-99) mg/dL Calculated Osmolality 289 (285-295) mOsm/kg Calcium 9.2 (8.5-10.1) mg/dL Total Bilirubin 0.3 (0.00-1.00) mg/dL AST 17 (15-37) U/L ALT 22 (14-59) U/L Alkaline Phosphatase 83 (46-116) U/L Total Protein 7.7 (6.4-8.2) g/dL Albumin 3.5 (3.4-5.0) g/dL Urine Color Light yellow (Yellow) Urine Appearance Clear (Clear) Urine pH 6.0 (5.0-8.0) Ur Specific Vaughn 1.010 (1.010-1.020) Urine Protein 2+ H (Negative) Urine Glucose (UA) Negative (Negative) Urine Ketones Negative (Negative) Ur Blood (Man) Trace-intact H (Negative) Urine Nitrate Negative (Negative) Urine Bilirubin Negative (Negative) Urine Urobilinogen 0.2 (0.2-1.0) mg/dL Leukocyte Esterase Rfl Negative (Negative) JORDANA/UL Urine RBC 0-2 (0-2) /hpf Urine WBC 0-3 (0-3) /hpf Ur Squamous Epith Cells Rare (Few) /hpf Urine Bacteria Trace (None) /hpf Imaging Data Attestation: I personally reviewed and interpreted this imaging study as follows: Discharge Plan Discharge Clinical Impression: Right distal ureteral calculus Patient Disposition: Home, Self-Care Condition: Stable Instructions: Antibiotic Form, Ureteral Stones (ED) Additional Instructions: Please follow-up with the primary doctor in the next week. Make an appointment with a urologist to further discuss the kidney stone in the right side. Come back to the ER if worse symptoms. Prescriptions: New tamsulosin [Flomax] 0.4 mg capsule 0.4 mg PO DAILY Qty: 30 0RF cephalexin 500 mg capsule 500 mg PO BID 7 Days Qty: 14 0RF hydrocodone-acetaminophen 5-325 mg tablet 1 tablet PO Q6H PRN (Reason: pain) Qty: 30 0RF Rx Instructions: 1-2 tabs per dose Medrol 2 mg tablet 2 mg PO TID 2 Days Qty: 6 0RF No Action atorvastatin 20 mg tablet 20 mg PO HS lisinopril-hydrochlorothiazide 20-12.5 mg tablet 1 tablet PO DAILY amlodipine 10 mg tablet 10 mg PO DAILY levothyroxine 137 mcg tablet 137 mcg PO DAILY bupropion HCl 300 mg tablet extended release 24 hr 300 mg PO DAILY [employer] 1.5 billion cell Capsule 1 cap PO DAILY Stool Softener 50 mg Capsule 50 mg PO DAILY albuterol sulfate [Ventolin HFA] 90 mcg/actuation Hfa Aerosol Inhaler 1 puff INHALATION BID aspirin 325 mg Tablet,Delayed Release (Dr/Ec) 650 mg PO DAILY 28 Days Qty: 56 0RF Follow-up/Referrals: Migel Stevens MD [Primary Care Provider] - Time of Disposition: 23:38
[2024-04-14 19:27] LABS: Bacteria Urine Trace /hpf; RBC Urine 0-2 /hpf (0-2); Squamous Epithelial Cell Urine Rare /hpf (Few); WBC Urine 0-3 /hpf (0-3)
--- NOTE | 2024-04-14 20:25 | PC.NURSE ---
RETURNED FROM CT
--- NOTE | 2024-04-14 21:30 | PC.NURSE ---
PATIENT IS RESTING IN ROOM. REPORTS INCREASED RIGHT LOWER QUAD ABDOMINAL PAIN.
[2024-04-14] MEDS: KETOROLAC (*BKC) 60 MG/2 ML VIAL IM (21:54)
--- NOTE | 2024-04-14 22:10 | PC.NURSE ---
LAB AT THE BEDSIDE
[2024-04-14 22:15] LABS: Eosinophils Absolute Auto 0.21 K/mm3 (0.02-0.50); Hematocrit 37.9 % (35.0-42.0); Hemoglobin 12.9 g/dL (11.7-13.8); Immature Granulocyte Absolute 0.03 K/mm3 (0.00-0.00); Immature Granulocyte Percent A 0.3 % (0.0-0.0); Lymphocytes Absolute Auto 1.84 K/mm3 (1.10-4.50); Lymphocytes Percent Auto 17.9 % (18.0-42.0); Mean Corpuscular Hemoglobin 30.9 pg (27.0-31.0); Mean Corpuscular Volume 90.9 fL (78.0-102.0); Mean Platelet Volume 8.3 fl (9.2-11.8); Monocytes Absolute Auto 0.86 K/mm3 (0.10-0.90); Monocytes Percent Auto 8.4 % (2.0-11.0); Neutrophils Absolute Auto 7.24 K/mm3 (1.70-7.20); Neutrophils Percent Auto 70.4 % (50.0-70.0); Platelet Count Result 288 K/mm3 (150-420); Red Blood Count 4.17 M/mm3 (4.20-5.40); Red Cell Distribution Width 12.3 % (11.6-14.4); White Blood Count 10.3 K/mm3 (4.8-10.8)
--- NOTE | 2024-04-14 22:19 | PC.NURSE ---
PATIENT REPORTS THAT HER PAIN IS AT 5/10. RESTING IN ROOM WITH CALL LIGHT IN REACH. FAMILY AT THE BEDSIDE
[2024-04-14 22:31] LABS: Alanine Aminotransferase 22 U/L (14-59); Albumin Level 3.5 g/dL (3.4-5.0); Alkaline Phosphatase 83 U/L (46-116); Anion Gap 8 mmol/L (4-12); Aspartate Amino Transferase 17 U/L (15-37); Bilirubin,Total 0.3 mg/dL (0.00-1.00); Blood Urea Nitrogen 20 mg/dL (7-18); Calcium 9.2 mg/dL (8.5-10.1); Carbon Dioxide 28 mmol/L (21-32); Chloride 102 mmol/L (98-108); Estimated CRCL calculation 39 ml/min; Estimated Glomerular Filt Rate 39; Glucose 122 mg/dL (70-99); Osmolality Calculated 289 mOsm/kg (285-295); Potassium 4.1 mmol/L (3.5-5.1); Sodium 138 mmol/L (136-145); Total Protein 7.7 g/dL (6.4-8.2)
[2024-04-14 23:07] VITALS: BP 140/83; PULSE 80; RESP 18; TEMP 36.7; O2SAT 97
--- NOTE | 2024-04-14 23:31 | PC.NURSE ---
PATIENT REPORTS THAT HER PAIN IS MANAGEABLE AT THIS TIME. READY TO GO HOME
--- NOTE | 2024-04-14 23:34 | PC.NURSE ---
STRAINER AND COLLECTION CUP GIVEN TO PATIENT
[2024-04-14] MEDS: CEPHALEXIN 500 MG CAPSULE PO (23:47)
[2024-04-14] MEDS: TAMSULOSIN HCL 0.4 MG CAPSULE PO (23:47)
[2024-04-15 00:20] VITALS: BP 136/72; PULSE 78; RESP 16; O2SAT 97
== END 2024-04-15 00:20 | disposition home or self-care (01) ==
PROVIDERS: Emergency Provider Emergency Medicine; PCP Family Medicine
DX: N20.1 Calculus of ureter (principal); E03.9 Hypothyroidism, unspecified; J44.9 Chronic obstructive pulmonary disease, unspecified; F17.210 Nicotine dependence, cigarettes, uncomplicated
CPT/HCPCS: 36415; 74018; 74176; 80053; 81001; 85025; 96372; 99284; A9270; J1885

== ENCOUNTER 2024-10-06 06:32 | Emergency (ER) | payer MEDICARE, SELFPAY ==
[2024-10-06 06:32] VITALS: BP 157/71; PULSE 107; RESP 18; TEMP 36.6; O2SAT 96
--- OUTSIDE RECORDS SUMMARY | 2024-10-06 06:34 | XMS_ITS | Encounter Summary ---
Author Organization [facility] Healthcare Address [address] [place] [address] Care Team Providers Care Metal Fabricating Shop Helper Name Role Phone Migel Stevens MD Primary Care Provide r Encounter Details Date Type Department Care Team (Latest Contact Info) Description 09/06/2020 Ophth Exam Ophthalmology Ciara Alicea MD PhD [address] [facility] [address] [place] [address] Social History Tobacco Use Types Packs/Day Years Used Date Smoking Tobacco: Former Smokeless Tobacco: Never Comments No Sex and Gender Information Value Date Recorded Sex Assigned at Not on file Legal Sex Female 7:30 PM DENIAL RESOLUTION SPECIALIST Gender Identity Female 02/13/2022 2:02 PM CDT Sexual Orientation Not on file documented as of this encounter Plan of Treatment Not on file documented as of this encounter Visit Diagnoses Not on filedocumented in this encounter Eye Exam Visual Acuity (Snellen - Linear) Right eye Left eye Near cc 20/20 20/20 Correction: Glasses Tonometry (Tonopen, 6:56 PM) Right eye Left eye Pressure 15 13 Pupils Dark Light Shape React APD Right eye 3 2 Round Brisk None Left eye 3 2 Round Brisk None Visual Us Right eye Left eye Full Full Extraocular Movement Right eye Left eye Full Full Neuro/Psych Oriented x3: Yes Mood/Affect: Normal Dilation Both eyes: 1% Tropicamide, 2 .5% Phenylephrine @ 6:56 PM External Exam Right eye Left eye External Normal Normal Slit Lamp Exam Right eye Left eye Lids/Lashes Normal Normal Conjunctiva/Sclera White and quiet White and sang et Cornea Clear Clear Anterior Chamber Deep and quiet Deep and quiet Iris Round and reactive Round and janiya ctive Lens Clear Clear Vitreous vitreous syneresis, no az sign trace vitreous syneresis Fundus Exam Right eye Left eye Disc Normal crisp margins , no pallor or heme Normal crisp margins, no pallor or heme C/D Ratio 0.4 0.4 Macula Normal flat attached Normal flat attached Vessels Normal c/c Normal c/c, slig htly more prominent vessels leaving the disc relative to OS Periphery Normal without lesio ns, tears or detachments Normal without lesions, tears or detachments Care Teams Metal Fabricating Shop Helper Relationship Specialty Start Date End Date Migel Stevens MD [address] [place] [address] PCP - General 09/06/20 documented as of this encounter
--- OUTSIDE RECORDS SUMMARY | 2024-10-06 06:34 | XMS_ITS | Clinical Summary ---
Author Organization [facility] Macdonald Buildi Address [address] [place] [id number] Care Team Providers Care Cat Scan Tech Name Role Phone Miegl Stevens MD Primary Care Provide r Allergies No known active allergies Medications atorvastatin (LIPITOR) 20 mg tabletIndicatio ns:hyperlipidem ia Take 1 tablet (20 mg total) by mouth nightly 1 Active amLODIPine (NORVASC) 10 mg tabletIndicatio ns:hypertension Take 1 tablet (10 mg total) by mouth every morning 1 Active lisinopril-hydr oCHLOROthiazide (ZESTORETIC) 20-12.5 mg per tabletIndicatio ns:hypertension Take 1 tablet by mouth every morning 1 Active buPROPion XL (WELLBUTRIN XL) 300 mg 24 hr tablet Take 1 tablet (300 mg total) by mouth every morning 2 Active levothyroxine (SYNTHROID) 137 mcg tablet Take 1 tablet (137 mcg total) by mouth automotive glass specialist before breakfast 2 Active albuterol HFA (PROVENTIL HFA,VENTOLIN HFA,PROAIR HFA) 90 mcg/actuation inhaler Inhale 1 puff 2 (two) times a day Active docusate sodium (COLACE) 100 mg capsuleIndicati ons:constipatio n Take 1 capsule (100 mg total) by mouth every morning Active acetaminophen (TYLENOL) 325 mg tablet Take 2 tablets (650 mg total) by mouth every 4 (four) hours 90 tablet 3 2 Active oxyCODONE (ROXICODONE) 5 mg immediate release tabletIndicatio ns:Pain Take 1 tablet (5 mg total) by mouth every 4 (four) hours as needed for pain 30 tablet 2 Active Active Problems Problem Noted Date Diagnosed Date 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 Right total parotidectomy with nerve preservation. 2. Right adipofascial parascapular free flap. Microvascular anastomosis to right facial artery and 3.0 hand baseball sewer to right facial vein. Lesion of parotid gland 02/04/2022 Floater, vitreous, right 10/07/2020 Assessment & Plan (10/07/2020 5:16 PM CDT): Stable since onset. Good vision. Denied flashes of light or curtain/shadow across the vision. No inflammation, vitritis, vitreous (vit) heme or retinal detachment (RD)/RT. - Strict return precautions reviewed - RTC in 6 months for eye exam Surgical History Surgery Date Site/Laterality Comments CATARACT EXTRACTION Right TOTAL HIP ARTHROPLASTY Left TOTAL HIP ARTHROPLASTY TUBAL LIGATION APPENDECTOMY WRIST SURGERY Medical History Medical History Date Comments Hypertension Hypothyroid HLD (hyperlipidemia) Cardiac complication patient rep orts her BP dropped during right hip replacement at [facility] July 30, 2021. received 3 units of blood and had to stay in the ICU for 24 hrs History of transfusion 2021 after hip surgery COPD (chronic obstructive pulmonary disease) (HCC) 2009 Family History Medical History Relation Name Comments Allergies Father Bharath Maradiaga Hypertension Mother Torrie Maradiaga Relation Name Status Comments Father Bharath Maradiaga Mother Torrie Maradiaga Social History Tobacco Use Types Packs/Day Years Used Date Smoking Tobacco: Former Cigarettes Q uit: 2013 Smokeless Tobacco: Never Tobacco Cessation:Counseling Given: Not Answered AUDIT-C Answer Date Recorded Q1: How often do you have a drink containing alcohol? Never 03/02/2022 Q2: How many drinks containi ng alcohol do you have on a typical day when you are drinking? Patient does not drink 2 Frequency of Binge Drinking Not on file 02/14 Comments No Sex and Gender Information Value Date Recorded Sex Assigned at Not on file Legal Sex Female 7:30 PM TELLERS SUPERVISOR Gender Identity Female 02/13/2022 2:02 PM CDT Sexual Orientation Not on file Obstetrics History Last Filed Vital Signs Vital Sign Reading Time Taken Comments Blood Pressure 124/62 04/12/2024 8:34 AM TELLERS SUPERVISOR Pulse 97 04/12/2024 8:34 AM TELLERS SUPERVISOR Temperature 36.6 C (97.8 F) 04/12/2024 8:34 AM TELLERS SUPERVISOR Respiratory Rate 18 04/12/2024 8:34 AM TELLERS SUPERVISOR Oxygen Saturation 98% 04/12/2024 8:34 AM TELLERS SUPERVISOR Inhaled Oxygen Concentration - - Weight 88.5 kg (195 lb) 04/12/2024 8:34 AM TELLERS SUPERVISOR Height 165.1 cm (5' 5 ) 04/12/2024 8:34 AM TELLERS SUPERVISOR Body Mass Index 32.45 04/12/2024 8:34 AM TELLERS SUPERVISOR Plan of Treatment Health Maintenance Due Date Last Done Comments Breast Cancer Screening-Mammogram 1954 Colon Cancer Screening-Colonoscopy 1954 Depression Screening 1954 Hepatitis C Screening 1954 Osteoporosis Screening-Bone Density Scan 1954 DTaP/Tdap/Td Vaccine (1 - Tdap) 1965 Hepatitis B Screening 01/28/1972 Zoster Vaccine (1 of 2) 01/28/2004 Well Visit 65+ 2019 Pneumococcal vaccine 65+ (2 of 2 - PCV) 03/10/2022 03/10/2021 Fall Risk Assessment 03/03/2023 03/03/2022 Covid-19 Vaccine (4 - 2023-2 5 season) 2024 02/05/2022, 08/30/2020, 08/02/2020 Influenza Vaccine (Season Ended) 2025 02/05/2022, 03/10/2021, 02/22/2020, Additional history exists Medical Devices Implanted Type Area Bilingual Instructor Device Identifier Shelf Expiration Date Model / Serial / Lot [employer] Nohelia Kevin Microvascular 3mm Ring Pin Protective Cover Jaw Assembly Latex Free [id number] - Sna - [id number] Implanted:Qty: 1 on 03/02/2022 by Ayah Mathias MD at [facility] Other - see comments Right: Neck [employer] Nohelia [id number] 06/25/2026 [id number] / NA / [id number] Description:3.0 mm GEM Coupl er [place] # [id number] [facility] [place] [facility] # [id number] Insurance T MEDICARE T MEDICARE Advance Directives For more information, please contact: [phone] * Full Code (Latest Code Status on File) Date Activated Date Inactivated Comments 03/02/2022 5:27 PM 03/03/2022 3:56 PM Care Teams Cat Scan Tech Relationship Specialty Start Date End Date Migel Stevens MD [address] [place] [address] [facility] - General 09/06/20
--- OUTSIDE RECORDS SUMMARY | 2024-10-06 06:34 | XMS_ITS | Referral Summary ---
Author Organization [facility] Macdonald Buildi Address [address] [place] [id number] Care Team Providers Care Alterations Sewer Name Role Phone Migel Stevens MD Primary Care Provide r Allergies [...] 1 tablet (137 mcg total) by mouth house fellow before breakfast 2 Active albuterol HFA (PROVENTIL [...] anastomosis to right facial artery and 3.0 automobile detailer to right facial vein. Lesion of parotid gland 02/04/2022 Floater, vitreous, right 10/07/2020 Assessment & Plan (10/07/2020 5:16 PM CDT): Stable since onset. Good vision. Denied flashes of light or curtain/shadow across the vision. No inflammation, vitritis, vitreous (vit) heme or retinal detachment (RD)/RT. - Strict return precautions reviewed - RTC in 6 months for eye exam Social History Tobacco Use Types Packs/Day Years Used Date Smoking Tobacco: Former Cigarettes Q uit: 2013 Smokeless Tobacco: Never Tobacco Cessation:Counseling Given: Not Answered AUDIT-C Answer Date Recorded Q1: How often do you have a drink containing alcohol? Never 03/02/2022 Q2: How many drinks containi ng alcohol do you have on a typical day when you are drinking? Patient does not drink Frequency of Binge Drinking Not on file 02/14 Comments No Sex and Gender Information Value Date Recorded Sex Assigned at Not on file Legal Sex Female 7:30 PM RECEIVING DISTRIBUTION STATION OPERATOR Gender Identity Female 02/13/2022 2:02 PM CDT Sexual Orientation Not on file Last Filed Vital Signs Vital Sign Reading Time Taken Comments Blood Pressure 124/62 04/12/2024 8:34 AM RECEIVING DISTRIBUTION STATION OPERATOR Pulse 97 04/12/2024 8:34 AM RECEIVING DISTRIBUTION STATION OPERATOR Temperature 36.6 C (97.8 F) 04/12/2024 8:34 AM RECEIVING DISTRIBUTION STATION OPERATOR Respiratory Rate 18 04/12/2024 8:34 AM RECEIVING DISTRIBUTION STATION OPERATOR Oxygen Saturation 98% 04/12/2024 8:34 AM RECEIVING DISTRIBUTION STATION OPERATOR Inhaled Oxygen Concentration - - Weight 88.5 kg (195 lb) 04/12/2024 8:34 AM RECEIVING DISTRIBUTION STATION OPERATOR Height 165.1 cm (5' 5 ) 04/12/2024 8:34 AM RECEIVING DISTRIBUTION STATION OPERATOR Body Mass Index 32.45 04/12/2024 8:34 AM RECEIVING DISTRIBUTION STATION OPERATOR Plan of Treatment Not on file Medical Devices Implanted Type Area Shirring Machine Operator Device Identifier Shelf Expiration Date Model / Serial / Lot Synovis Micro EventBuilder Nohelia Parkman Microvascular 3mm Ring Pin Protective Cover Jaw Assembly Latex Free [id number] - Sna - [id number] Implanted:Qty: 1 on 03/02/2022 by Ayah Mathias MD at [facility] Other - see comments Right: Neck Synovis Micro EventBuilder Rogeriojustino [id number] 06/25/2026 [id number] / NA / [id number] Description:3.0 mm GEM Coupl er [place] # [id number] [facility] # [id number] Insurance [facility] MEDICARE [facility] MEDICARE Advance Directives For more information, please contact: [phone] * Full Code (Latest Code Status on File) Date Activated Date Inactivated Comments 03/02/2022 5:27 PM 03/03/2022 3:56 PM Care Teams Alterations Sewer Relationship Specialty Start Date End Date Migel Stevens MD [address] [place] [address] PCP - General 09/06/20
--- NOTE | 2024-10-06 06:44 | ED.ALLEREA ---
HPI - Allergic Reaction General Chief complaint: Allergic Reaction Stated complaint: L side of face swollen Time Seen by Provider: 10/06/24 06:43 Source: patient Mode of arrival: ambulatory Limitations: no limitations History of Present Illness HPI narrative: this is a 69-year-old female with a history of hypertension currently taking lisinopril for her blood pressure developed facial swelling in her lips upper and lower lip with minimal tongue swelling there is no stridor no shortness of breath no audible wheezing no fever chills does have some mild nausea with no abdominal pain. No other swelling was expressed or visualized. MD complaint: facial swelling Onset (ago): hour(s) Exposure: medication Symptoms: facial swelling, lip swelling and nausea Severity: mild Related Data Home Medications ?Medication ?Instructions ?Recorded ?Confirmed ?Last Taken ?Type amlodipine 10 mg tablet 10 mg PO DAILY 09/06/20 07/30/22 07/30/21 History atorvastatin 20 mg tablet 20 mg PO HS 09/06/20 07/30/22 07/29/21 History lisinopril 20 1 tablet PO DAILY 09/06/20 07/30/22 07/29/21 History mg-hydrochlorothiazide 12.5 mg tablet Lactobacills gasseri-Bifidobac 1 cap PO DAILY 07/25/21 07/30/22 07/28/21 History bifidum,longum 1.5 billion cell capsule (CardStar) albuterol sulfate 90 mcg/actuation 1 puff inhalation BID 07/25/21 07/30/22 07/30/21 History aerosol inhaler (Ventolin HFA) bupropion HCl 300 mg 24 hr tablet, 300 mg PO DAILY 07/25/21 07/30/22 07/30/21 History extended release docusate sodium 50 mg capsule 50 mg PO DAILY 07/25/21 07/30/22 07/26/21 History (Stool Softener) levothyroxine 137 mcg tablet 137 mcg PO DAILY 07/25/21 07/30/22 07/30/21 History Allergies Allergy/AdvReac Type Severity Reaction Status Date / Time lisinopril Allergy Severe Swelling Verified 10/06/24 07:01 of Lip/Tongue/Throat Review of Systems Review of Systems: All systems reviewed & are unremarkable except as noted in HPI and below PMFSH Past Medical History Medical History Urinary retention Hypotension after procedure Arthritis Depression Constipation High cholesterol COPD (chronic obstructive pulmonary disease) Wears glasses Dyslipidemia Mood disorder Hypothyroidism Hypertension Surgical History Surgical History S/P total hip arthroplasty History of left hip replacement History of surgery on wrist History of tubal ligation History of appendectomy Family History Family History Other Asthma Heart disease High cholesterol Hypertension Social History Social History Social History: Patient lives at home herself. She does have a pet irene retriever and 2 cats. Patient states that her daughter would be will be her surrogate. Patient wishes to be a full code at this time. Smoking packs per day: 1.5 Smoking cigarettes per day: 30.0 Years smoked: 40 Smoking pack-years: 60.00 Smoking status: Never smoker Tobacco type: cigarettes Smoking end date: 05/17/12 Additional smoking assessment comments: DENIES ANY FORM OF TOBACCO USE Alcohol intake: never Substance use: never Living arrangements: with family Occupation/Education: retired Additional occupation/education comments: From the [employer] Gender identity (if verbalized by the patient): Female Sexual Orientation (if Verbalized by the Patient): Straight or Heterosexual Spiritual care concerns: Yes (Taoist) Agree to blood products: Yes Exam Const: General: healthy appearing Nutritional Appearance: well nourished Orientation/consciousness: patient oriented x3 Limitations: no limitations HENMT: Other: Swelling of the lower face and lips with minimal tongue swelling with no stridor no audible wheezing. Eyes: Conjunctivae: conjunctivae normal Pupils: Equal, round and reactive pupils present Neck: Neck: normal visual inspection, no lymphadenopathy and no meningeal signs Chest: Chest palpation & inspection: normal inspection of the chest Resp: Effort & Inspection: normal respiratory effort Auscultation: clear to auscultation bilaterally Cardio: Rate: regular rate Rhythm: regular rhythm GI: GI Palp: Yes Soft to palpation Auscultation: normal bowel sounds : General: Yes bladder normal to palpation Skin: Other: Swelling of upper and lower lip Neuro: General: patient oriented x3, moves all extremities and no meningeal signs Cranial nerves: Yes Nystagmus not present Speech: normal speech Extrem: General: normal to inspection Course Course Emergency Course: administered 125 IV Solu-Medrol S along with 25mg IV Benadryl prior to discharge patient had relief of her symptoms. Vital Signs Vital signs: Vital Signs Temperature 36.6 C 10/06/24 06:32 Pulse Rate 107 H 10/06/24 06:32 Respiratory Rate 18 10/06/24 06:32 Blood Pressure 157/71 H 10/06/24 06:32 Pulse Oximetry 96 10/06/24 06:32 Oxygen Delivery Room Air 10/06/24 06:32 Temperature 36.6 C 10/06/24 06:32 Pulse Rate 107 H 10/06/24 06:32 Respiratory Rate 18 10/06/24 06:32 Blood Pressure 157/71 H 10/06/24 06:32 Pulse Oximetry 96 10/06/24 06:32 Oxygen Delivery Room Air 10/06/24 06:32 Critical Care Time Critical Care Time Critical Care Time: No Discharge Plan Discharge Clinical Impression: Angioedema, Allergic reaction Patient Disposition: Home Condition: Stable Instructions: Antibiotic Form, Urticaria (ED), Angioedema (ED) Additional Instructions: advised to discontinue lisinopril with hydrochlorothiazide, take medication as prescribed and follow-up with primary care physician within the next 3 to 5 days for further evaluation treatment. can take [id number] Zyrtec daily for 1 week. Patient Language: Grenadian Prescriptions: New losartan-hydrochlorothiazide 50-12.5 mg tablet 1 tablet PO DAILY Qty: 30 0RF prednisone 20 mg tablet 20 mg PO DAILY 5 Days Qty: 5 0RF No Action tamsulosin [Flomax] 0.4 mg capsule 0.4 mg PO DAILY Qty: 30 0RF cephalexin 500 mg capsule 500 mg PO BID 7 Days Qty: 14 0RF hydrocodone-acetaminophen 5-325 mg tablet 1 tablet PO Q6H PRN (Reason: pain) Qty: 30 0RF Rx Instructions: 1-2 tabs per dose Medrol 2 mg tablet 2 mg PO TID 2 Days Qty: 6 0RF atorvastatin 20 mg tablet 20 mg PO HS lisinopril-hydrochlorothiazide 20-12.5 mg tablet 1 tablet PO DAILY amlodipine 10 mg tablet 10 mg PO DAILY levothyroxine 137 mcg tablet 137 mcg PO DAILY bupropion HCl 300 mg tablet extended release 24 hr 300 mg PO DAILY CardStar 1.5 billion cell Capsule 1 cap PO DAILY Stool Softener 50 mg Capsule 50 mg PO DAILY albuterol sulfate [Ventolin HFA] 90 mcg/actuation Hfa Aerosol Inhaler 1 puff INHALATION BID aspirin 325 mg Tablet,Delayed Release (Dr/Ec) 650 mg PO DAILY 28 Days Qty: 56 0RF Follow-up/Referrals: Migel Stevens MD [Primary Care Provider] - Time of Disposition: 06:51
[2024-10-06] MEDS: diphenhydrAMINE HCl INJ 50 MG/ML VIAL 25 MG IV PUSH (06:51)
[2024-10-06] MEDS: methylPREDNISolone SOD SUCC 125 MG VIAL IV PUSH (06:51)
--- OUTSIDE RECORDS SUMMARY | 2024-10-06 06:55 | XMS_ITS | Clinical Summary ---
Author Organization [facility] Macdonald Buildi Address [address] [place] [phone] Care Team Providers Care Nitriles Lab Technician Name Role Phone Migel Stevens MD Primary [...] 1 tablet (137 mcg total) by mouth travel agency manager before breakfast 2 Active albuterol HFA (PROVENTIL [...] anastomosis to right facial artery and 3.0 records management specialist to right facial vein. Lesion of parotid [...] BP dropped during right hip replacement at [facility] July 30, 2021. received 3 units of [...] on file Legal Sex Female 7:30 PM JOB LITHOGRAPHER Gender Identity Female 02/13/2022 2:02 PM CDT Sexual Orientation Not on file Obstetrics History Last Filed Vital Signs Vital Sign Reading Time Taken Comments Blood Pressure 124/62 04/12/2024 8:34 AM JOB LITHOGRAPHER Pulse 97 04/12/2024 8:34 AM JOB LITHOGRAPHER Temperature 36.6 C (97.8 F) 04/12/2024 8:34 AM JOB LITHOGRAPHER Respiratory Rate 18 04/12/2024 8:34 AM JOB LITHOGRAPHER Oxygen Saturation 98% 04/12/2024 8:34 AM JOB LITHOGRAPHER Inhaled Oxygen Concentration - - Weight 88.5 kg (195 lb) 04/12/2024 8:34 AM JOB LITHOGRAPHER Height 165.1 cm (5' 5 ) 04/12/2024 8:34 AM JOB LITHOGRAPHER Body Mass Index 32.45 04/12/2024 8:34 AM JOB LITHOGRAPHER Plan of Treatment Health Maintenance Due Date [...] history exists Medical Devices Implanted Type Area Line Driver Device Identifier Shelf Expiration Date Model / Serial / Lot Synovis Textádo Nohelia Kevin Microvascular 3mm Ring Pin Protective Cover Jaw Assembly Latex Free [id number] - Sna - [id number] Implanted:Qty: 1 on 03/02/2022 by Ayah Mathias MD at [facility] Other - see comments Right: Neck [employer] Nohelia [id number] 06/25/2026 [id number] / NA / [id number] Description:3.0 mm GEM Coupl er [place] # [id number] [facility] # [id number] Insurance T MEDICARE T MEDICARE Advance Directives For more information, please contact: [phone] * Full Code (Latest Code Status on File) Date Activated Date Inactivated Comments 03/02/2022 5:27 PM 03/03/2022 3:56 PM Care Teams Nitriles Lab Technician Relationship Specialty Start Date End Date Migel Stevens MD [address] [place] [address] [facility] - General 09/06/20
--- OUTSIDE RECORDS SUMMARY | 2024-10-06 06:55 | XMS_ITS | Encounter Summary ---
Author Organization [facility] Address [address] [place] [address] Care Team Providers Care Solderer Assembler Name Role Phone Migel Stevens MD Primary Care Provide r Encounter Details Date Type Department Care Team (Latest Contact Info) Description 09/06/2020 Ophth Exam Ophthalmology Ciara Alicea MD PhD [address] [facility] [address] [place] [address] Social History Tobacco Use Types Packs/Day Years Used Date Smoking Tobacco: Former Smokeless Tobacco: Never Comments No Sex and Gender Information Value Date Recorded Sex Assigned at Not on file Legal Sex Female 7:30 PM FENCE MAKING MACHINE OPERATOR Gender Identity Female 02/13/2022 2:02 PM [...] without lesions, tears or detachments Care Teams Solderer Assembler Relationship Specialty Start Date End Date Migel Stevens MD [address] [place] [address] PCP - General 09/06/20 documented as of this encounter
--- OUTSIDE RECORDS SUMMARY | 2024-10-06 06:55 | XMS_ITS | Referral Summary ---
Author Organization [facility] Macdonald Buildi Address [address] [place] [phone] Care Team Providers Care Endo Tech Name Role Phone Migel Stevens MD Primary [...] 1 tablet (137 mcg total) by mouth elevator service mechanic before breakfast 2 Active albuterol HFA (PROVENTIL [...] anastomosis to right facial artery and 3.0 colorectal surgeon to right facial vein. Lesion of parotid [...] on file Legal Sex Female 7:30 PM NONDESTRUCTIVE TESTER Gender Identity Female 02/13/2022 2:02 PM CDT Sexual Orientation Not on file Last Filed Vital Signs Vital Sign Reading Time Taken Comments Blood Pressure 124/62 04/12/2024 8:34 AM NONDESTRUCTIVE TESTER Pulse 97 04/12/2024 8:34 AM NONDESTRUCTIVE TESTER Temperature 36.6 C (97.8 F) 04/12/2024 8:34 AM NONDESTRUCTIVE TESTER Respiratory Rate 18 04/12/2024 8:34 AM NONDESTRUCTIVE TESTER Oxygen Saturation 98% 04/12/2024 8:34 AM NONDESTRUCTIVE TESTER Inhaled Oxygen Concentration - - Weight 88.5 kg (195 lb) 04/12/2024 8:34 AM NONDESTRUCTIVE TESTER Height 165.1 cm (5' 5 ) 04/12/2024 8:34 AM NONDESTRUCTIVE TESTER Body Mass Index 32.45 04/12/2024 8:34 AM NONDESTRUCTIVE TESTER Plan of Treatment Not on file Medical Devices Implanted Type Area Wind Up Operator Device Identifier Shelf Expiration Date Model / Serial / Lot Synovis Micro 3CI Nohelia Mckee Microvascular 3mm Ring Pin Protective Cover Jaw Assembly Latex Free [id number] - Sna - [id number] Implanted:Qty: 1 on 03/02/2022 by Ayah Mathias MD at [facility] Other - see comments Right: Neck Synovis Micro 3CI Rogeriojustino [id number] 06/25/2026 [id number] / NA / [id number] Description:3.0 mm GEM Coupl er [place] # [id number] [facility] # [id number] Insurance [facility] MEDICARE [facility] MEDICARE Advance Directives For more information, please contact: [phone] * Full Code (Latest Code Status on File) Date Activated Date Inactivated Comments 03/02/2022 5:27 PM 03/03/2022 3:56 PM Care Teams Endo Tech Relationship Specialty Start Date End Date Migel Stevens MD [address] [place] [address] PCP - General 09/06/20
[2024-10-06 07:01] VITALS: BP 132/66; O2SAT 96
--- NOTE | 2024-10-06 07:07 | PC.NURSE ---
DR BYRNES IS AT THE BEDSIDE
--- NOTE | 2024-10-06 07:12 | PC.NURSE ---
AILN CARIAS AND THIS RN AT THE BEDSIDE FOR REPORT.
[2024-10-06 07:16] VITALS: BP 116/56; O2SAT 95
--- NOTE | 2024-10-06 07:21 | PC.NURSE ---
Report received at bedside from ARETHA Joshua
[2024-10-06] MEDS: FAMOTIDINE 20 MG/2 ML VIAL 40 MG IV PUSH (07:22)
[2024-10-06 07:31] VITALS: BP 117/57; O2SAT 98
[2024-10-06 07:46] VITALS: BP 116/55; O2SAT 100
--- NOTE | 2024-10-06 07:59 | PC.NURSE ---
Pt resting well on cot in room. States she is feeling better now. Still has some angioedema to the left face/lips, but has decreased significantly since arrival. Pt speech has improved. Agreeable to discharge with prescribed medications and follow up with PCP.
[2024-10-06 08:01] VITALS: BP 124/60; O2SAT 97
== END 2024-10-06 08:23 | disposition home or self-care (01) ==
PROVIDERS: Emergency Provider Emergency Medicine; PCP Family Medicine
DX: T78.3XXA Angioneurotic edema, initial encounter (principal); I10 Essential (primary) hypertension
CPT/HCPCS: 96372; 96374; 96375; 99284; J1200; J2919